=== PATIENT | female | born 1990 | race Caucasian/White ===

== ENCOUNTER 2020-05-30 02:26 | Emergency (ER) | payer BC, SELFPAY ==
[2020-05-30 02:30] VITALS: BP 117/82; PULSE 86; RESP 20; TEMP 36.7; O2SAT 100
--- NOTE | 2020-05-30 02:58 | ED.DENTAL ---
HPI - Dental/Oral General Chief complaint: Ear Stated complaint: Teeth and R ear pain Time Seen by Provider: 05/30/20 02:56 Source: patient Mode of arrival: ambulatory Limitations: no limitations History of Present Illness HPI Narrative: Patient is a 29-year-old female complaining of dental pain, right upper molar radiating to her right ear started yesterday. Patient states that she has bad teeth . Denies any facial, jaw, throat or neck swelling. Patient denies any dysphagia. Patient denies any fever chills. Patient denies any ear discharge. Related Data Allergies Allergy/AdvReac Type Severity Reaction Status Date / Time metoclopramide [From Reglan] AdvReac Itching Verified 05/30/20 02:48 ondansetron [From Zofran] AdvReac Itching Verified 05/30/20 02:48 promethazine [From Phenergan] AdvReac Itching Verified 05/30/20 02:48 Review of Systems Review of Systems: All systems reviewed & are unremarkable except as noted in HPI and below PMFSH Social History Social History Gender identity (if verbalized by the patient): Female Exam Const: General: no acute distress and alert Orientation/consciousness: patient oriented x3 HENMT: Mouth: Yes Normal oral and palatal mucosa present, Yes lip normal and Yes moist mucous membranes Teeth and gingiva: abnormal tooth and associated gingiva (Widespread dental caries and decay, no signs of abscess) Eyes: Conjunctivae: conjunctivae normal Neck: Neck: normal visual inspection Resp: Effort & Inspection: normal respiratory effort Extrem: General: normal to inspection Psych: Mental Status: mental status grossly normal Affect: normal affect Attitude: cooperative Course Vital Signs Vital signs: Vital Signs Temperature 36.7 C 05/30/20 02:30 Pulse Rate 86 05/30/20 02:30 Respiratory Rate 20 05/30/20 02:30 Blood Pressure 117/82 05/30/20 02:30 Pulse Oximetry 100 05/30/20 02:30 Temperature 36.7 C 05/30/20 02:30 Pulse Rate 86 05/30/20 02:30 Respiratory Rate 20 05/30/20 02:30 Blood Pressure 117/82 05/30/20 02:30 Pulse Oximetry 100 05/30/20 02:30 MDM - Dental/Oral Differential Diagnosis Differential diagnosis: Likely gingival abscess, dental caries, toothache and fracture of tooth Discharge Plan Discharge Clinical Impression: Pain due to dental caries, Dental decay Patient Disposition: Home, Self-Care Condition: Stable Instructions: Antibiotic Form Prescriptions: New amoxicillin-pot clavulanate [Augmentin] 500-125 mg tablet 1 tablet PO Q12H Qty: 14 RF: 0 Follow-up/Referrals: PHYSICIAN,STORE WAREHOUSE ASSOCIATE [Primary Care Provider] - Time of Disposition: 03:03
[2020-05-30] MEDS: KETOROLAC 30 MG/ML VIAL (*BKC) IM (03:09)
== END 2020-05-30 03:18 | disposition home or self-care (01) ==
PROVIDERS: Emergency Provider Emergency Medicine
DX: K02.9 Dental caries, unspecified (principal)
CPT/HCPCS: 96372; 99283; J1885

== ENCOUNTER 2020-06-10 00:38 | Emergency (ER) | payer BC, SELFPAY ==
--- NOTE | ~2020-06-10 | CT_ITS ---
EXAMINATION: CT abdomen pelvis w con INDICATION: Hematuria TECHNIQUE: Computed tomographic images of the abdomen and pelvis were obtained after the administrati on of 100 cc of Omnipaque 350 intravenous contrast. The dose-length product (DLP) was 270.09 mGy-cm. Automated exposure control and iterative reconstruction technique were employed. COMPARISON: None available FINDINGS: The lung bases are clear. The heart size is normal. The liver, spleen, pancreas, gallbladde r, and adrenal glands are normal. There is a 9 mm nonobstructing stone in the right kidney lower pole . The left kidney is unremarkable. There is mild urothelial enhancement of the right ureter in the ri ght renal pelvis. An IUD is present in expected position. No pathologically enlarged abdominal or pel jules lymph nodes are identified. There is no free intraperitoneal gas or evidence of bowel obstruction . There is a small fat-containing umbilical hernia. IMPRESSION: 1. Mild urothelial enhancement of the right ureter and right renal pelvis which may reflect urinary t ract infection. 2. Nonobstructing right nephrolithiasis. Reviewed, dictated and finalized at location A. RONMENTAL MANAGEMENT SPECIALIST IMPRESSION: 1. Mild urothelial enhancement of the right ureter and right renal pelvis which may reflect urinary tract infection. 2. Nonobstructing right nephrolithiasis.
[2020-06-10 00:44] VITALS: BP 126/93; PULSE 89; RESP 16; TEMP 36.3; O2SAT 99
[2020-06-10 01:11] LABS: Add Urine Microscopic? YES; Appearance Urine Cloudy (Clear); Bilirubin Urine Negative (Negative); Blood Urine 3+ (Negative); Glucose Urine UA Negative (Negative); Ketones Urine Negative (Negative); Leukocyte Esterase Ur Negative LEU/UL (Negative); Mucus Urine Few /lpf; Nitrate Urine Negative (Negative); Protein Urine 2+ mg/dL (Negative); RBC Urine >75 /hpf (0-2); Specific Grav Ur 1.028 (1.001-1.035); Urobilinogen Urine Negative mg/dL (<2.0)
[2020-06-10 01:20] LABS: Color Urine Brown (Yellow)
--- NOTE | 2020-06-10 02:00 | ED.FEMALEGU ---
HPI - Female Genitourinary General Chief complaint: Urogenital-Female Stated complaint: I'm peeing blood. it started tonight. Time Seen by Provider: 06/10/20 01:16 Source: patient Mode of arrival: ambulatory Limitations: no limitations History of Present Illness HPI Narrative: Patient is 29 years old white female presents with hematuria started 2-hour prior to arrival to the emergency room. Patient reports some discomfort in the suprapubic area recently. Also is telling me that she been having itching around the vagina since October 2019, unable to go to any doctor because of the COVID-19. Patient also telling me that her urethra hurt. Patient denies any fever, chills, nausea, vomiting. Patient drove herself to the emergency room. Related Data Allergies Allergy/AdvReac Type Severity Reaction Status Date / Time metoclopramide [From Reglan] AdvReac Itching Verified 05/30/20 02:48 ondansetron [From Zofran] AdvReac Itching Verified 05/30/20 02:48 promethazine [From Phenergan] AdvReac Itching Verified 05/30/20 02:48 Review of Systems Review of Systems: Narrative: CONSTITUTIONAL: Denies fever, chills, or sweats. EYES: Denies visual changes, redness, or discharge. ENT: Denies rhinorrhea, congestion, sore throat, or otalgia. CARDIOVASCULAR: Denies chest pain, palpitations, or edema. RESPIRATORY: Denies cough or dyspnea. GASTROINTESTINAL: Denies abdominal pain, nausea, vomiting, or diarrhea. GENITOURINARY: Denies dysuria or hematuria. SKIN: Denies rash or itching. MUSCULOSKELETAL: Denies back pain, joint pain, or myalgia. NEUROLOGIC: Denies headache, numbness, or weakness. PSYCHIATRIC: Denies anxiety or depression. PMFSH Social History Social History Gender identity (if verbalized by the patient): Female Exam Narrative: Exam Narrative: General appearance: Well-developed, well-nourished Skin: Normal color Chest and respiratory: Airway patent, no respiratory distress, no accessory muscle use Heart: Regular rate/rhythm Abdomen: Soft, mild tenderness suprapubic area , no organomegaly, quiet bowel sounds Vascular: Normal peripheral pulses, normal capillary refill. Musculoskeletal: Normal range of motion, nontender back Neurologic: Alert and oriented ?3, ELECTRONEURODIAGNOSTIC TECHNOLOGIST is normal as tested, no gross motor deficit Course Course Emergency Course: Stable Vital Signs Vital signs: Vital Signs Temperature 36.3 C L 06/10/20 00:44 Pulse Rate 89 06/10/20 00:44 Respiratory Rate 16 06/10/20 00:44 Blood Pressure 126/93 H 06/10/20 00:44 Pulse Oximetry 99 06/10/20 00:44 Temperature 36.3 C L 06/10/20 00:44 Pulse Rate 89 06/10/20 00:44 Respiratory Rate 16 06/10/20 00:44 Blood Pressure 126/93 H 06/10/20 00:44 Pulse Oximetry 99 06/10/20 00:44 MDM - Female Genitourinary MDM Narrative Medical decision making narrative: Patient presents with hematuria. Urinary tract infection is my concern. Differential Diagnosis Differential diagnosis: Likely urinary tract infection, vaginitis and other (Kidney stone, tumor) Lab Data Result diagrams: 06/10/20 01:59 06/10/20 02:08 Labs: Lab Results 06/10/20 06/10/20 06/10/20 Range/Units 00:54 01:59 01:59 WBC 11.3 H (4.5-10.0) K/mm3 RBC 3.88 L (4.2-5.4) M/mm3 Hgb 12.5 (12.0-15.0) g/dL Hct 37.4 (37.0-47.0) % MCV 96.4 (80-100) fl MCH 32.2 (26-34) pg MCHC 33.4 (32-36) g/dl RDW 13.6 (11.5-14.5) % Plt Count 343 (150-375) k/mm3 MPV 9.9 (7.4-10.4) fl Immature Gran % (Auto) 0.2 (0-0.5) % Neut % (Auto) 48.5 (45.5-73.1) % Lymph % (Auto) 39.7 (18.3-44.2) % [place] % (A
--- NOTE | 2020-06-10 02:02 | PC.NURSE ---
Patient being taken to CT.
[2020-06-10 02:07] LABS: Basophils Absolute Auto 0.1 K/mm3 (0.0-0.1); Basophils Percent Auto 0.4 % (0.2-1.2); Eosinophils Absolute Auto 0.2 K/mm3 (0-0.3); Eosinophils Percent Auto 1.7 % (0-4.4); Hematocrit 37.4 % (37.0-47.0); Hemoglobin 12.5 g/dL (12.0-15.0); Immature Granulocyte Absolute 0.02 K/mm3 (0.00-0.031); Immature Granulocyte Percent A 0.2 % (0-0.5); Lymphocytes Absolute Auto 4.48 K/mm3 (0.9-3.2); Lymphocytes Percent Auto 39.7 % (18.3-44.2); Mean Corpuscular HGB Conc 33.4 g/dl (32-36); Mean Corpuscular Hemoglobin 32.2 pg (26-34); Mean Corpuscular Volume 96.4 fl (80-100); Mean Platelet Volume 9.9 fl (7.4-10.4); Monocytes Absolute Auto 1.1 K/mm3 (0.1-0.6); Monocytes Percent Auto 9.5 % (2.6-8.5); Neutrophils Absolute Auto 5.5 K/mm3 (1.3-6.7); Neutrophils Percent Auto 48.5 % (45.5-73.1); Platelet Count Result 343 k/mm3 (150-375); Red Blood Count 3.88 M/mm3 (4.2-5.4); Red Cell Distribution Width 13.6 % (11.5-14.5); White Blood Count 11.3 K/mm3 (4.5-10.0)
[2020-06-10 02:11] LABS: Estimated CRCL calculation 87 ml/min; Estimated Glomerular Filt Rate > 60
[2020-06-10 02:25] LABS: Alanine Aminotransferase 17 U/L (4-35); Albumin Level 4.3 g/dL (3.5-5.1); Alkaline Phosphatase 82 U/L (38-126); Anion Gap 6 mmol/L (8-16); Aspartate Amino Transferase 23 U/L (14-36); Bilirubin,Total 0.4 mg/dL (0.2-1.3); Blood Urea Nitrogen 18 mg/dL (7-17); Calcium 9.5 mg/dL (8.4-10.2); Carbon Dioxide 24 mmol/L (22-30); Chloride 112 mmol/L (98-107); Estimated CRCL calculation 101 ml/min; Estimated Glomerular Filt Rate > 60; Glucose 102 mg/dL (65-105); Sodium 142 mmol/L (137-145)
[2020-06-10 02:30] LABS: Potassium 3.5 mmol/L (3.4-5.0)
[2020-06-10 04:00] VITALS: BP 117/74; PULSE 84; RESP 20; O2SAT 99
[2020-06-10] MEDS: AZITHROMYCIN 250 MG TABLET 1000 MG PO (04:13)
[2020-06-10] MEDS: cefTRIAXone 250 MG VIAL IM (04:13)
== END 2020-06-10 04:20 | disposition home or self-care (01) ==
PROVIDERS: Emergency Provider Emergency Medicine
DX: N34.2 Other urethritis (principal); R31.9 Hematuria, unspecified; N20.0 Calculus of kidney
CPT/HCPCS: 36415; 74177; 80053; 81001; 81025; 85025; 87086; 87088; 96372; 99284; A9270; J0696; Q9967

== ENCOUNTER 2020-07-15 05:34 | Emergency (ER) | payer BC, SELFPAY ==
[2020-07-15 05:38] VITALS: BP 109/82; PULSE 94; RESP 18; TEMP 36.1; O2SAT 100
--- NOTE | 2020-07-15 05:48 | ED.DENTAL ---
HPI - Dental/Oral General Chief complaint: Dental/Oral Stated complaint: dental pain Time Seen by Provider: 07/15/20 05:42 Source: RN notes reviewed History of Present Illness HPI Narrative: Patient presents to emergency room from home for dental pain. Patient states that she has multiple carious teeth and is scheduled to see a dentist in several weeks she states that for the past several days she has had increasing pain in the right upper and lower molars she denies any new trauma or injury she denies any fevers or chills sore throat or any other symptoms she states she last took Tylenol and ibuprofen both approximately 45 minutes prior to arrival for the pain patient states she did drive herself to the emergency department. Denies any chance of Related Data Allergies Allergy/AdvReac Type Severity Reaction Status Date / Time metoclopramide [From Reglan] AdvReac Itching Verified 07/15/20 05:51 ondansetron [From Zofran] AdvReac Itching Verified 07/15/20 05:51 promethazine [From Phenergan] AdvReac Itching Verified 07/15/20 05:51 Review of Systems Review of Systems: Narrative: Gen.: Denies fevers or chills HEENT: See HPI Neuro: Denies numbness, tingling, weakness Skin: Denies rash Endo: Denies DM PMFSH Past Medical History Medical History (Updated 07/15/20 @ 05:51 by Domingo Arteaga DO) Patient denies significant medical history Social History Social History (Updated 07/15/20 @ 05:49 by Domingo Arteaga DO) Smoking status: Never smoker Gender identity (if verbalized by the patient): Female Exam Narrative: Exam Narrative: APPEARANCE: No acute distress, nontoxic, resting in bed HEENT: Normocephalic, atraumatic, TMs clear bilaterally, nares patent, oral mucosa moist, airway patent, multiple carious teeth, tooth #1 and 2 are tender to palpation as well as tooth #31 and 32 there is no erythema the gum with no fluctuance no overlying swelling or erythema of the face Neck: Supple nontender RESPIRATORY: No respiratory distress MUSCULOSKELETAl: Moves all extremities. NEURO: Awake and alert. Following commands, speech normal, no focal deficits SKIN:: Warm, dry. Normal Color PSYCHIATRIC: Normal affect/mood Course Course Emergency Course: Discussed pain medication with the patient the patient drove herself to the emergency department just took Tylenol and ibuprofen free from his prior to arrival. Patient did ask if I would write her a narcotic pain medication at home and I discussed with her need for antibiotics and anti-inflammatories and for follow-up with dentist. Discussed with patient results of workup and diagnosis. Discussed need for follow-up with primary care, proper use of medication, and reasons to return to the emergency department. Patient understands and agrees to current treatment plan Vital Signs Vital signs: Vital Signs Temperature 97 F L 07/15/20 05:38 Pulse Rate 94 07/15/20 05:38 Respiratory Rate 18 07/15/20 05:38 Blood Pressure 109/82 07/15/20 05:38 Pulse Oximetry 100 07/15/20 05:38 Temperature 97 F L 07/15/20 05:38 Pulse Rate 94 07/15/20 05:38 Respiratory Rate 18 07/15/20 05:38 Blood Pressure 109/82 07/15/20 05:38 Pulse Oximetry 100 07/15/20 05:38 Discharge Plan Discharge Clinical Impression: Toothache, Dental abscess Patient Disposition: Home, Self-Care Condition: Stable Instructions: Antibiotic Form, Toothache (ED) Additional Instructions: Return for increasing pain fever or any other symptoms or concern Prescriptions: New penicillin V potassium 500 mg tablet 500 mg PO TID Qty: 30 RF: 0 ibuprofen [IBU] 600 mg tablet 600 mg PO Q6H PRN (Reason: pain) Qty: 20 RF: 0 No Action amoxicillin-pot clavulanate [Augmentin] 500-125 mg tablet 1 tablet PO Q12H Qty: 14 RF: 0 ciprofloxacin HCl [Cipro] 500 mg tablet 500 mg PO Q12H Qty: 14 RF: 0 phenazopyridine [Pyridium] 200 mg tablet 200 mg PO TID PRN (Reas
[2020-07-15] MEDS: PENICILLIN V POTASSIUM 250 MG TABLET 500 MG PO (05:52)
[2020-07-15] MEDS: traMADol HCL (*CRX) 50 MG TABLET PO (06:02)
== END 2020-07-15 06:41 | disposition home or self-care (01) ==
LOC: ANHED 06:01
PROVIDERS: Emergency Provider Emergency Medicine
DX: K04.7 Periapical abscess without sinus (principal)
CPT/HCPCS: 99283; A9270

== ENCOUNTER 2020-08-01 01:07 | Emergency (ER) | payer BC, SELFPAY ==
[2020-08-01 01:10] VITALS: BP 148/87; PULSE 85; RESP 16; TEMP 37.1; O2SAT 100
--- NOTE | 2020-08-01 01:40 | ED.DENTAL ---
HPI - Dental/Oral General Chief complaint: Dental/Oral Stated complaint: dental pain Time Seen by Provider: 08/01/20 01:12 History of Present Illness HPI Narrative: Patient is a 29-year-old female who presents ER with dental pain. Right-sided across the lower and upper jaw. Radiates towards her ear and under her eye. No fevers or chills or sweats. Has discomfort with swallowing but has no inability to swallow. No difficulty breathing. Reports she is currently taking penicillin for potential infection. Reports pain is not controlled and that is worsened by chest breathing. She has attempted to contact on-call dentist however to make an emergency appointment at the dental school he have to wake up at 8 AM and she does not wake up until 9:30 AM. She reports she wants slept through her alarm. Reports no swollen lymph node under the jaw on the right. Related Data Allergies Allergy/AdvReac Type Severity Reaction Status Date / Time metoclopramide [From Reglan] AdvReac Itching Verified 07/15/20 05:51 ondansetron [From Zofran] AdvReac Itching Verified 07/15/20 05:51 promethazine [From Phenergan] AdvReac Itching Verified 07/15/20 05:51 Review of Systems ENT: Denies dysphagia Comments: Dental pain radiating to ear. Respiratory: Respiratory: Denies dyspnea PMFSH Past Medical History Medical History (Updated 08/01/20 @ 02:06 by Kofi Farah MD) Patient denies significant medical history Social History Social History (Updated 07/15/20 @ 05:49 by Domingo Arteaga DO) Smoking status: Never smoker Gender identity (if verbalized by the patient): Female Exam Narrative: Exam Narrative: GENERAL: Well-appearing, well-nourished, and in no acute distress. HEAD: Normocephalic, atraumatic. ENT: Mucous membranes moist. Poor dentition. No discernible abscess to drain. No facial swelling. Partially erupted tooth #32. NECK: Supple. RESP: Nonlabored, no stridor, speaks in full sentences. PSYCH: Normal mood and affect. Course Course Emergency Course: [place] for pain here. Discussed patient needs to follow-up with the dentist for further treatment of her pain. Continue antibiotics. Vital Signs Vital signs: Vital Signs Temperature 98.7 F 08/01/20 01:10 Pulse Rate 85 08/01/20 01:10 Respiratory Rate 16 08/01/20 01:10 Blood Pressure 148/87 H 08/01/20 01:10 Pulse Oximetry 100 08/01/20 01:10 Temperature 98.7 F 08/01/20 01:10 Pulse Rate 85 08/01/20 01:10 Respiratory Rate 16 08/01/20 01:10 Blood Pressure 148/87 H 08/01/20 01:10 Pulse Oximetry 100 08/01/20 01:10 Discharge Plan Discharge Clinical Impression: Toothache Patient Disposition: Home, Self-Care Condition: Stable Instructions: Toothache (ED) Additional Instructions: Your dental pain is likely related to exposed nerve either from gum erosion or dental disease. You need to follow-up with a dentist for further treatment evaluation this. You may try dental wax to cover the most sensitive teeth. Continue your home antibiotic that you were previously prescribed. Return to the ER if you cannot breathe, you cannot swallow, or you have significant facial swelling. Prescriptions: New tramadol 50 mg tablet 50 mg PO Q6H PRN (Reason: pain) Qty: 14 RF: 0 No Action penicillin V potassium 500 mg tablet 500 mg PO TID Qty: 30 RF: 0 ibuprofen [IBU] 600 mg tablet 600 mg PO Q6H PRN (Reason: pain) Qty: 20 RF: 0 amoxicillin-pot clavulanate [Augmentin] 500-125 mg tablet 1 tablet PO Q12H Qty: 14 RF: 0 ciprofloxacin HCl [Cipro] 500 mg tablet 500 mg PO Q12H Qty: 14 RF: 0 phenazopyridine [Pyridium] 200 mg tablet 200 mg PO TID PRN (Reason: pain) Qty: 6 RF: 0 Follow-up/Referrals: Dental Referral Line [Outside] - 1 Day PHYSICIAN,CITY PLANNING AIDE [Primary Care Provider] - Stand Alone Forms: Work/School Release IP
[2020-08-01] MEDS: HYDROcodone/acetaminophen (*CRX) 5-325 MG TABLET 1 TAB PO (02:01)
== END 2020-08-01 02:20 | disposition home or self-care (01) ==
PROVIDERS: Emergency Provider Emergency Medicine
DX: K08.89 Other specified disorders of teeth and supporting structures (principal)
CPT/HCPCS: 99283; A9270

== ENCOUNTER 2021-06-09 03:10 | Observation (INO) | payer BC, SELFPAY ==
[2021-06-09] VITALS (10 sets, daily range): BP systolic 99–116; BP diastolic 51–88; PULSE 105–125; RESP 18–22; TEMP 36.1–37.5; O2SAT 97–99
--- NOTE | ~2021-06-09 | CT_ITS ---
EXAMINATION: CT abdomen pelvis w con DATE: 06/09/2021 05:02 INDICATION: Epigastric abdominal pain. TECHNIQUE: Computed tomography (CT) of the abdomen and pelvis was performed with 100 mL Omnipaque 350 intravenous contrast. Automated exposure control and iterative reconstruction technique were employe d. The dose-length product was 332.26 mGy-cm. COMPARISON: CT abdomen and pelvis 06/10/2020 FINDINGS: The visualized portions of the lung bases demonstrate mild atelectasis. No pleural effusion . The heart size is normal. No pericardial effusion. The liver, gallbladder, spleen, pancreas, adrena l glands, and left kidney are normal. There is an 11 mm stone in right kidney. There is mild wall thi ckening and enhancement of the right ureter and right renal pelvis, consistent with pyelitis. There i s an intrauterine device in expected position. There are no dilated loops of bowel. There is liquid s tool in the colon suggestive of diarrhea. The appendix is normal. There are no pathologically enlarge d lymph nodes. There is no free intraperitoneal fluid. There is mild lumbar spondylosis. IMPRESSION: 1. Right-sided pyelitis again seen. 2. 11 mm nonobstructing right kidney stone. 3. Liquid stool in the colon suggestive of diarrhea. Reviewed, dictated and finalized at location A. [employer] DENTAL ASSISTANT
--- NOTE | 2021-06-09 03:37 | ED.NAVMDI ---
HPI - Nausea/Vomiting/Diarrhea General Chief complaint: Nausea/Vomiting/Diarrhea Stated complaint: n/v/d Time Seen by Provider: 06/09/21 03:14 History of Present Illness HPI Narrative: Patient is a 30-year-old female who presents ER with nausea vomiting diarrhea. Symptoms began around 930 and have intensified throughout the night. Innumerable amounts of diarrhea as well as vomiting. Often occur at the same time. No known sick contacts. Patient had a burrito for dinner that was made with fresh ingredients. No blood in her stool. Patient reports only antiemetic she can take his Compazine. No alleviating factors up until now. Symptoms often are aggravated by moving around. Related Data Allergies Allergy/AdvReac Type Severity Reaction Status Date / Time metoclopramide [From Reglan] AdvReac Itching Verified 07/15/20 05:51 ondansetron [From Zofran] AdvReac Itching Verified 07/15/20 05:51 promethazine [From Phenergan] AdvReac Itching Verified 07/15/20 05:51 Review of Systems Review of Systems: All systems reviewed & are unremarkable except as noted in HPI and below Constitutional: Constitutional: Denies chills, Denies fever(s) and Reports weakness ENT: Denies nasal congestion and Denies sore throat Cardiovascular: Cardiovascular: Denies chest pain, Denies rapid heart rate and Denies radiating jaw, neck or arm pain Respiratory: Respiratory: Denies cough and Denies dyspnea Gastrointestinal: Gastrointestinal: Denies abdominal pain, Reports diarrhea, Reports nausea and Reports vomiting Genitourinary: Genitourinary: Denies nocturia, Denies dysuria and Denies flank pain PMFSH Past Medical History Medical History (Updated 06/09/21 @ 06:54 by Kofi Farah MD) Patient denies significant medical history Surgical History Surgical History (Updated 06/09/21 @ 03:37 by Kofi Farah MD) No pertinent past surgical history Social History Social History (Updated 07/15/20 @ 05:49 by Domingo Arteaga DO) Smoking status: Never smoker Gender identity (if verbalized by the patient): Female Exam Narrative: GENERAL: Uncomfortable-appearing, well-nourished, and in mild distress. HEAD: Normocephalic, atraumatic. ENT: Mucous membranes moist. NECK: Supple. CHEST: Clear to auscultation. No respiratory distress. HEART: Tachycardic and regular. Normal peripheral pulses. ABDOMEN: Soft, nontender, nondistended. EXTREMITIES: Normal range of motion. No edema. SKIN: Warm, dry, no rash. NEURO: Alert and oriented x3. Course Course Emergency Course: Patient informed of results. Recommend admission for observation given persistent tachycardia and vomiting despite antiemetics. Aggressively hydrating patient. Vital Signs Vital signs: Vital Signs Temperature 97.1 F L 06/09/21 03:33 Pulse Rate 125 H 06/09/21 03:33 Respiratory Rate 22 H 06/09/21 03:33 Blood Pressure 114/88 06/09/21 03:33 Pulse Oximetry 99 06/09/21 03:33 Temperature 97.0 F L 06/09/21 07:01 Pulse Rate 110 H 06/09/21 07:01 Respiratory Rate 20 06/09/21 07:01 Blood Pressure 111/72 06/09/21 06:45 Pulse Oximetry 99 06/09/21 07:01 MDM - Nausea/Vomiting/Diarrhea Lab Data Result diagrams: 06/09/21 03:38 06/09/21 03:38 Labs: Lab Results 06/09/21 06/09/21 06/09/21 Range/Units 03:37 03:38 03:38 WBC 26.0 H (4.5-10.0) K/mm3 RBC 4.85 (4.2-5.4) M/mm3 Hgb 15.7 H D (12.0-15.0) g/dL Hct 45.3 (37.0-47.0) % MCV 93.4 (80-100) fl MCH 32.4 (26-34) pg MCHC 34.7 (32-36) g/dl RDW 12.4 (11.5-14.5) % Plt Count 451 H (150-375) k/mm3 MPV 9.6 (7.4-10.4) fl Immature Gran % (Auto) 0.6 H (0-0.5) % Neut % (Auto) 86.9 H (45.5-73.1) % Lymph % (Auto) 6.2 L (18.3-44.2) % [place] % (Auto) 5.6 (2.6-8.5) % Eos % (Auto) 0.3 (0-4.4) % Baso % (Auto) 0.4 (0.2-1.2) % Lymph # (Auto) 1.62 (0.9-3.2) K/mm3 [place] # (Auto) 1.5 H (0.1-0.6) K/
[2021-06-09] MEDS: PROCHLORPERAZINE EDISYLATE 10 MG/2 ML VIAL IV PUSH (03:39)
[2021-06-09] MEDS: SODIUM CHLORIDE 0.9% IV 1,000 ML 999 ML IV CONT ×2 (03:39→06:50)
[2021-06-09 03:48] LABS: Basophils Absolute Auto 0.1 K/mm3 (0.0-0.1); Basophils Percent Auto 0.4 % (0.2-1.2); Eosinophils Absolute Auto 0.1 K/mm3 (0-0.3); Eosinophils Percent Auto 0.3 % (0-4.4); Hematocrit 45.3 % (37.0-47.0); Hemoglobin 15.7 g/dL (12.0-15.0); Immature Granulocyte Absolute 0.16 K/mm3 (0.00-0.031); Immature Granulocyte Percent A 0.6 % (0-0.5); Lymphocytes Absolute Auto 1.62 K/mm3 (0.9-3.2); Lymphocytes Percent Auto 6.2 % (18.3-44.2); Mean Corpuscular HGB Conc 34.7 g/dl (32-36); Mean Corpuscular Hemoglobin 32.4 pg (26-34); Mean Corpuscular Volume 93.4 fl (80-100); Mean Platelet Volume 9.6 fl (7.4-10.4); Monocytes Absolute Auto 1.5 K/mm3 (0.1-0.6); Monocytes Percent Auto 5.6 % (2.6-8.5); Neutrophils Absolute Auto 22.6 K/mm3 (1.3-6.7); Neutrophils Percent Auto 86.9 % (45.5-73.1); Platelet Count Result 451 k/mm3 (150-375); Red Blood Count 4.85 M/mm3 (4.2-5.4); Red Cell Distribution Width 12.4 % (11.5-14.5)
[2021-06-09 04:09] LABS: Pregnancy On Board Control Positive; Urine Pregnancy Test Negative
[2021-06-09 04:28] LABS: Alanine Aminotransferase 35 U/L (4-35); Albumin Level 5.4 g/dL (3.5-5.1); Alkaline Phosphatase 118 U/L (38-126); Anion Gap 20 mmol/L (8-16); Aspartate Amino Transferase 35 U/L (14-36); Blood Urea Nitrogen 15 mg/dL (7-17); Calcium 10.8 mg/dL (8.4-10.2); Carbon Dioxide 16 mmol/L (22-30); Chloride 105 mmol/L (98-107); Estimated Glomerular Filt Rate > 60; Glucose 170 mg/dL (65-110); Lipase 61 U/L (23-300); Potassium 3.9 mmol/L (3.4-5.0); Sodium 141 mmol/L (137-145)
[2021-06-09 06:03] LABS: SARS-CoV-2 RNA PCR Negative
[2021-06-09] MEDS: LACTATED RINGERS 1,000 ML 999 ML IV CONT (06:28)
--- NOTE | 2021-06-09 07:45 | ADMGEN ---
This patient, Phylicia Lewis, was admitted to Medical Room 248-. Patient/family oriented to hospital policies and general routines including ID bracelet, bed and alarms, visiting hours, pain management, procedures, bathroom and other care routines, personal items, smoking policy, room service/diet, and visiting hours. Information on how to activate the Rapid Response Team has been discussed. Patient/Family are encouraged to report perceived risks to care and to ask questions if they do not understand what they are told or what they should do.
[2021-06-09] MEDS: SODIUM CHLORIDE 0.9% IV 1,000 ML 125 ML IV CONT (08:49)
--- NOTE | 2021-06-09 12:30 | WPDGICN ---
Assessment and Plan Assessment and plan (1) Gastroenteritis: Code(s): K52.9 - Noninfective gastroenteritis and colitis, unspecified Status: Acute Assessment and Plan: she is doing much better right now, probably infectious etiology no more nausea and she is hoping to go home she can follow-up in office in 3-4 weeks (2) Intractable vomiting: Code(s): R11.10 - Vomiting, unspecified Status: Acute Assessment and Plan: resolved after medical treatment (3) Dehydration: Code(s): E86.0 - Dehydration Status: Acute Assessment and Plan: improved (4) Leukocytosis: Code(s): D72.829 - Elevated white blood cell count, unspecified Status: Acute GI Consult Note Consult date/time: 06/09/21 12:30 Reason for consult: enterocolitis, nausea and vomiting HPI: Phylicia Lewis is a 30 year old female with history of IBS at baseline will have 2-3 loose stools. She is quite healthy other than smoker and yesterday with new onset of diarrhea several times with intractable nausea and vomiting, mild abdominal pain, denies sick contacts or similar problem, she was thirsty. She was admitted here with diagnosed if dehydration (she was hemoconcentrated) and CT scan a/p reviewed, c/w diarrhea, wbc 26k, started on antibiotics. She was admitted, hydrated and today feeling much better, tolerated liquid diet, no more nausea and wish to go home soon. Review of Systems Constitutional: Constitutional: Denies chills Eyes: Eyes: Denies blurry vision ENT: Reports Normal hearing present Cardiovascular: Cardiovascular: Denies chest pain Respiratory: Respiratory: Denies dyspnea Gastrointestinal: Gastrointestinal: Reports diarrhea, Reports nausea and Reports vomiting Genitourinary: Genitourinary: Denies hematuria Musculoskeletal: Musculoskeletal: Denies neck pain Integumentary/Breasts: Skin/Breast: Denies dry skin Neurologic: Denies headache(s) Psychiatric: Psychiatric: Denies behavioral changes PMFSH Past Medical History Medical History (Updated 06/09/21 @ 16:29 by Sean Menchaca MD) Leukocytosis Patient denies significant medical history Surgical History Surgical History (Updated 06/09/21 @ 03:37 by Kofi Farah MD) No pertinent past surgical history Social History Social History (Updated 07/15/20 @ 05:49 by Domingo Arteaga DO) Smoking packs per day: 0.5 Smoking cigarettes per day: 10.0 Smoking status: Current every day smoker Tobacco type: cigarettes Gender identity (if verbalized by the patient): Female Meds Home Medications and Allergies Home Medications Medication Instructions Recorded Confirmed Type cetirizine [Zyrtec] 10 mg PO DAILY PRN 06/09/21 06/09/21 History ciprofloxacin HCl 500 mg PO Q12H #14 tablet 06/09/21 Rx metronidazole [Flagyl] 375 mg PO TID #21 cap 06/09/21 Rx prochlorperazine maleate 10 mg PO Q8H PRN #10 tablet 06/09/21 Rx [Compazine] Allergies Allergy/AdvReac Type Severity Reaction Status Date / Time metoclopramide [From Reglan] AdvReac Itching Verified 06/09/21 09:07 ondansetron [From Zofran] AdvReac Itching Verified 06/09/21 09:07 promethazine [From Phenergan] AdvReac Itching Verified 06/09/21 09:07 Vital Signs Vital Signs - 24 hr 06/09/21 03:33 06/09/21 05:59 06/09/21 06:01 Temperature 97.1 F L Pulse Rate 125 H Respiratory Rate 22 H Blood Pressure 114/88 116/83 114/81 Pulse Oximetry 99 06/09/21 06:15 06/09/21 06:30 06/09/21 06:45 Temperature Pulse Rate Respiratory Rate Blood Pressure 110/76 108/79 111/72 Pulse Oximetry 06/09/21 07:01 06/09/21 08:30 06/09/21 12:04 Temperature 97.0 F L 98.2 F Pulse Rate 110 H 113 H Respiratory Rate 20 18 Blood Pressure 109/68 Pulse Oximetry 99 98 97 06/09/21 13:41 Temperature 99.5 F Pulse Rate 105 H Respiratory Rate 18 Blood Pressure 99/51 L Pulse Oximetry 98 Exam Const: General: c
--- NOTE | 2021-06-09 15:17 | PM.DS ---
DS: Admitting Diagnosis Discharge Date 06/09/2021 Admitting Diagnosis nausea, vomiting and diarrhea DS: Discharge Diagnosis Discharge Diagnosis (1) Gastroenteritis: Code(s): K52.9 - Noninfective gastroenteritis and colitis, unspecified Status: Acute Assessment and Plan: ED-HPI Narrative: Patient is a 30-year-old female who presents ER with nausea vomiting diarrhea. Symptoms began around 930 and have intensified throughout the night. Innumerable amounts of diarrhea as well as vomiting. Often occur at the same time. No known sick contacts. Patient had a burrito for dinner that was made with fresh ingredients. No blood in her stool. Patient reports only antiemetic she can take his Compazine. No alleviating factors up until now. Symptoms often are aggravated by moving around. patient had developed intractable nausea or vomiting and diarrhea presented emergency depart was found to have dehydration and elevated white counts, CT scan abdomen showed 1. Right-sided pyelitis again seen. 2. 11 mm nonobstructing right kidney stone. 3. Liquid stool in the colon suggestive of diarrhea. patient was admitted with dehydration and elevated white count with enteritis patient was started on IV antibiotics and IV fluid plan is to continue to monitor patient and further recommendation to follow. (2) Dehydration: Code(s): E86.0 - Dehydration Status: Acute Assessment and Plan: will hydrate the patient and monitor. DS: Summary Hospital Course Reason for hospitalization: ED-HPI Narrative: Patient is a 30-year-old female who presents ER with nausea vomiting diarrhea. Symptoms began around 930 and have intensified throughout the night. Innumerable amounts of diarrhea as well as vomiting. Often occur at the same time. No known sick contacts. Patient had a burrito for dinner that was made with fresh ingredients. No blood in her stool. Patient reports only antiemetic she can take his Compazine. No alleviating factors up until now. Symptoms often are aggravated by moving around. patient had developed intractable nausea or vomiting and diarrhea presented emergency depart was found to have dehydration and elevated white counts, CT scan abdomen showed 1. Right-sided pyelitis again seen. 2. 11 mm nonobstructing right kidney stone. 3. Liquid stool in the colon suggestive of diarrhea. patient was admitted with dehydration and elevated white count with enteritis patient was started on IV antibiotics and IV fluid plan is to continue to monitor patient and further recommendation to follow. Hospital Course: patient is insisting to be discharged or she will leave AMA as her children are unattended and she wish to return home as soon as possible, will discharge the patient to follow-up with her primary care as soon as possible, again patient instructed if any symptoms redeveloped or worsen to go to nearest emergency department. Status at Discharge Functional status at discharge: independent ambulation Overall status at discharge: patient is back to baseline Time Spent with Patient Time attestation: Total time spent providing and/or coordinating discharge services: Time spent: Less than 30 minutes Exam Narrative: patient appears chronically ill older than her age Patient is comfortable, NAD HEENT: eyes are clear and none icteric LUNGS: normal respiratory effort ABD: not distended Lower extremities: no edema SKIN: nonjaundiced Neuro: grossly intact. DS: Data Data Completed and Pending Labs on day of discharge: Labs from last 24 hours 06/09/21 06/09/21 06/09/21 05:22 03:38 03:38 WBC 26.0 H RBC 4.85 Hgb 15.7 H D Hct 45.3 MCV 93.4 MCH 32.4 MCHC 34.7 RDW 12.4 Plt Count 451 H MPV 9.6 Immature Gran % (Auto) 0.6 H Neut % (Auto) 86.9 H Lymph % (Auto) 6.2 L [place] % (Auto) 5.6 Eos % (Auto) 0.3 Baso % (Auto) 0.4 Lymph # (Auto) 1.62 [place] # (Auto) 1.
--- NOTE | 2021-06-15 16:18 | PM.IMHP ---
H&P: HPI History of Present Illness Date/Time: 06/09/21 ED-HPI Narrative: Patient is a 30-year-old female who presents ER with nausea vomiting diarrhea. Symptoms began around 930 and have intensified throughout the night. Innumerable amounts of diarrhea as well as vomiting. Often occur at the same time. No known sick contacts. Patient had a burrito for dinner that was made with fresh ingredients. No blood in her stool. Patient reports only antiemetic she can take his Compazine. No alleviating factors up until now. Symptoms often are aggravated by moving around. patient had developed intractable nausea or vomiting and diarrhea presented emergency depart was found to have dehydration and elevated white counts, CT scan abdomen showed 1. Right-sided pyelitis again seen. 2. 11 mm nonobstructing right kidney stone. 3. Liquid stool in the colon suggestive of diarrhea. patient was admitted with dehydration and elevated white count with enteritis patient was started on IV antibiotics and IV fluid plan is to continue to monitor patient and further recommendation to follow. Chief Complaint: nausea, vomiting diarrhea Review of Systems Review of Systems: All systems reviewed & are unremarkable except as noted in HPI and below PMFSH Past Medical History Medical History (Updated 06/09/21 @ 16:29 by Sean Menchaca MD) Leukocytosis Patient denies significant medical history Surgical History Surgical History (Updated 06/09/21 @ 03:37 by Kofi Farah MD) No pertinent past surgical history Social History Social History (Updated 07/15/20 @ 05:49 by Domingo Arteaga DO) Smoking packs per day: 0.5 Smoking cigarettes per day: 10.0 Smoking status: Current every day smoker Tobacco type: cigarettes Gender identity (if verbalized by the patient): Female Meds Home Medications and Allergies Home Medications Medication Instructions Recorded Confirmed Type cetirizine [Zyrtec] 10 mg PO DAILY PRN 06/09/21 06/09/21 History ciprofloxacin HCl 500 mg PO Q12H #14 tablet 06/09/21 Rx metronidazole [Flagyl] 375 mg PO TID #21 cap 06/09/21 Rx prochlorperazine maleate 10 mg PO Q8H PRN #10 tablet 06/09/21 Rx [Compazine] Allergies Allergy/AdvReac Type Severity Reaction Status Date / Time metoclopramide [From Reglan] AdvReac Itching Verified 06/09/21 09:07 ondansetron [From Zofran] AdvReac Itching Verified 06/09/21 09:07 promethazine [From Phenergan] AdvReac Itching Verified 06/09/21 09:07 Exam Narrative: patient appears chronically ill older than her age Patient is comfortable, NAD HEENT: eyes are clear and none icteric LUNGS: normal respiratory effort ABD: not distended Lower extremities: no edema SKIN: nonjaundiced Neuro: grossly intact. Assessment and Plan Assessment and plan (1) Gastroenteritis: Code(s): K52.9 - Noninfective gastroenteritis and colitis, unspecified Status: Acute Assessment and Plan: ED-HPI Narrative: Patient is a 30-year-old female who presents ER with nausea vomiting diarrhea. Symptoms began around 930 and have intensified throughout the night. Innumerable amounts of diarrhea as well as vomiting. Often occur at the same time. No known sick contacts. Patient had a burrito for dinner that was made with fresh ingredients. No blood in her stool. Patient reports only antiemetic she can take his Compazine. No alleviating factors up until now. Symptoms often are aggravated by moving around. patient had developed intractable nausea or vomiting and diarrhea presented emergency depart was found to have dehydration and elevated white counts, CT scan abdomen showed 1. Right-sided pyelitis again seen. 2. 11 mm nonobstructing right kidney stone. 3. Liquid stool in the colon suggestive of diarrhea. patient was admitted with dehydration and elevated white count with enteritis patient was started on IV antibiotics and IV fluid plan is to continue
== END 2021-06-09 15:51 | disposition home or self-care (01) ==
LOC: ANHED 06:54 → ANH2MED 11:24
PROVIDERS: Admitting Provider Internal Medicine; Emergency Provider Emergency Medicine; PCP Family Medicine; Visit Provider Family Medicine
DX: K52.9 Noninfective gastroenteritis and colitis, unspecified (principal); E86.0 Dehydration; R11.2 Nausea with vomiting, unspecified; D72.829 Elevated white blood cell count, unspecified; Z20.822 Contact with and (suspected) exposure to COVID-19; Z53.29 Procedure and treatment not carried out because of patient's decision for other reasons
CPT/HCPCS: 36415; 74177; 80053; 81025; 83690; 85025; 87040; 96374; 96375; 99285; C9803; G0378; J0780; J2543; J7030; J7120; Q9967; U0003; U0005

== ENCOUNTER 2021-10-16 14:09 | Observation (INO) | payer BC, SELFPAY ==
[2021-10-16] VITALS (13 sets, daily range): BP systolic 108–127; BP diastolic 53–78; PULSE 73–98; RESP 12–20; TEMP 36.7–36.8; O2SAT 94–100; BMI 24.4
--- NOTE | ~2021-10-16 | CT_ITS ---
EXAMINATION: CT abdomen pelvis wo con DATE: 10/16/2021 16:33 INDICATION: Right lower quadrant pain TECHNIQUE: Computed tomography (CT) of the abdomen and pelvis was performed without intravenous contr ast. The dose-length product (DLP) was 264.30 mGy-cm. Automated exposure control and iterative recons truction technique were employed. COMPARISON: 06/09/2021 FINDINGS: The lung bases are clear. The heart size is normal. The liver, spleen, pancreas, gallbladde r, and adrenal glands are normal. The left kidney is unremarkable. There is an 11 mm stone at the rig ht ureteropelvic junction causing moderate to severe hydronephrosis. There is a 3 mm nonobstructing s tone of the right kidney lower pole. No pathologically enlarged abdominal or pelvic lymph nodes are i dentified. An IUD is present in the uterus in expected position. There is an umbilical hernia contain ing fat. There is no free intraperitoneal gas or evidence of bowel obstruction. IMPRESSION: 1. 11 mm stone at the right ureteropelvic junction causing moderate to severe hydronephrosis. 2. Nonobstructing right nephrolithiasis. Reviewed, dictated and finalized at location F. IMPRESSION: 1. 11 mm stone at the right ureteropelvic junction causing moderate to severe h ydronephrosis. 2. Nonobstructing right nephrolithiasis.
--- NOTE | ~2021-10-16 | XR_ITS ---
EXAMINATION: XR retrograde pyelo w/stent RT DATE: 10/17/2021 07:54 INDICATION: Cystoscopy and right ureteral stent placement TECHNIQUE: 4 fluoroscopic images of the abdomen and pelvis were obtained during procedure performed mary ann Ayon. Radiologist was not present for the imaging or procedure. The amount of fluoroscopy time used during this procedure was 0.5 minutes. COMPARISON: None. FINDINGS: On the media arts professor image there is an 11 mm stone in the region of the right ureteropelvic junction projecti ng over the right transverse process of L1. IUD in expected position in the central pelvis. Subsequen t images demonstrate placement of a right internal ureteral stent which extends across the unchanged stone at the ureteropelvic junction with loops formed in upper pole infundibulum of the right kidney and in the bladder. There is hydronephrosis with contrast seen within the moderately dilated calyces of the right kidney. IMPRESSION: 1. Right internal ureteral stent placement in expected position spanning a likely obstructing 11 mm s tone at the ureteropelvic junction. See procedure note for further detail. Reviewed, dictated and finalized at location D. IMPRESSION: 1. Right internal ureteral stent placement in expected position spanning a like ly obstructing 11 mm stone at the ureteropelvic junction. See procedure note fo r further detail.
[2021-10-16 14:31] LABS: Basophils Absolute Auto 0.1 K/mm3 (0.0-0.1); Basophils Percent Auto 0.3 % (0.2-1.2); Eosinophils Absolute Auto 0.1 K/mm3 (0-0.3); Eosinophils Percent Auto 0.3 % (0-4.4); Hematocrit 42.7 % (37.0-47.0); Hemoglobin 14.5 g/dL (12.0-15.0); Immature Granulocyte Percent A 0.5 % (0-0.5); Lymphocytes Absolute Auto 3.35 K/mm3 (0.9-3.2); Lymphocytes Percent Auto 16.8 % (18.3-44.2); Mean Corpuscular Hemoglobin 31.7 pg (26-34); Mean Corpuscular Volume 93.2 fl (80-100); Mean Platelet Volume 9.5 fl (7.4-10.4); Monocytes Absolute Auto 1.7 K/mm3 (0.1-0.6); Monocytes Percent Auto 8.4 % (2.6-8.5); Neutrophils Absolute Auto 14.7 K/mm3 (1.3-6.7); Neutrophils Percent Auto 73.7 % (45.5-73.1); Platelet Count Result 372 k/mm3 (150-375); Red Blood Count 4.58 M/mm3 (4.2-5.4); Red Cell Distribution Width 12.9 % (11.5-14.5)
[2021-10-16 14:43] LABS: Alanine Aminotransferase 23 U/L (6-35); Albumin Level 5.2 g/dL (3.5-5.1); Alkaline Phosphatase 87 U/L (38-126); Anion Gap 10 mmol/L (8-16); Aspartate Amino Transferase 27 U/L (14-36); Blood Urea Nitrogen 11 mg/dL (7-17); Calcium 9.8 mg/dL (8.4-10.2); Carbon Dioxide 19 mmol/L (22-30); Chloride 110 mmol/L (98-107); Estimated CRCL calculation 60 ml/min; Estimated Glomerular Filt Rate > 60; Glucose 102 mg/dL (65-110); Lipase 52 U/L (23-300); Potassium 4.3 mmol/L (3.4-5.0); Sodium 139 mmol/L (137-145)
--- NOTE | 2021-10-16 14:51 | ED.BACK ---
HPI - Back Pain/Injury General Chief Complaint: Back Pain/Injury Stated Complaint: back pain Time Seen by Provider: 10/16/21 14:50 History of Present Illness HPI Narrative: The patient is a 30-year-old female with a history of kidney stones presenting to the emergency department for evaluation of right flank pain flank pain with radiation to the right lower quadrant. Patient denies associated dysuria or hematuria. She reports onset of pain this morning and it became very acute and severe. Patient denies any upper abdominal pain. She reports nausea and vomiting. She denies fever, chills, chest pain, cough or shortness of patient denies any abdominal distention, diarrhea or constipation. She denies leg swelling or calf pain. She denies recent sick contacts. Patient denies any vaginal bleeding or vaginal discharge. Related Data Home Medications Medication Instructions Recorded Confirmed cetirizine 10 mg tablet (Zyrtec) 10 mg PO DAILY PRN Allergy Symptoms 06/09/21 06/09/21 Allergies Allergy/AdvReac Type Severity Reaction Status Date / Time metoclopramide [From Reglan] AdvReac Itching Verified 06/09/21 09:07 ondansetron [From Zofran] AdvReac Itching Verified 06/09/21 09:07 promethazine [From Phenergan] AdvReac Itching Verified 06/09/21 09:07 Review of Systems Review of Systems: CONSTITUTIONAL: Denies fever, chills, or sweats. ENT: Denies rhinorrhea, congestion, sore throat, or otalgia. CARDIOVASCULAR: Denies chest pain, palpitations, or edema. RESPIRATORY: Denies cough or dyspnea. GASTROINTESTINAL: Reports right lower quadrant abdominal pain, nausea, vomiting GENITOURINARY: Denies dysuria or hematuria. Reports right flank pain. SKIN: Denies rash or itching. MUSCULOSKELETAL: Denies back pain, joint pain, or myalgia. NEUROLOGIC: Denies headache, numbness, or weakness. [facility] Past Medical History Medical History Dehydration Gastroenteritis Intractable vomiting Leukocytosis Patient denies significant medical history Surgical History Surgical History No pertinent past surgical history Social History Social History Smoking packs per day: 0.5 Smoking cigarettes per day: 10.0 Smoking status: Current every day smoker Tobacco type: cigarettes Gender identity (if verbalized by the patient): Female Exam Narrative: GENERAL: Awake, alert, conversant, uncomfortable appearing HEAD: Normocephalic, atraumatic. EYES: 2+ PERRLA and EOMI. ENT: Nares clear, no rhinorrhea or epistaxis. Mucous membranes moist. NECK: Supple. CHEST: No respiratory distress, breathing even and non labored HEART: Regular rate, sinus rhythm ABDOMEN:Non distended, right lower quadrant tenderness without guarding, rebound, rigidity, + right flank tenderness EXTREMITIES: Normal range of motion. No edema. SKIN: Warm, dry, no rash. NEURO:No focal deficits. Alert and oriented x3 Course Vital Signs Vital signs: Vital Signs Temperature 36.7 C 10/16/21 14:11 Pulse Rate 86 10/16/21 14:11 Respiratory Rate 18 10/16/21 14:11 Blood Pressure 120/63 10/16/21 14:11 Pulse Oximetry 100 10/16/21 14:11 Oxygen Delivery Room Air 10/16/21 14:11 Temperature 36.7 C 10/16/21 14:11 Pulse Rate 86 10/16/21 14:11 Respiratory Rate 18 10/16/21 14:11 Blood Pressure 120/63 10/16/21 14:11 Pulse Oximetry 100 10/16/21 14:11 Oxygen Delivery Room Air 10/16/21 14:11 MDM - Back Pain/Injury MDM Narrative Medical decision making narrative: Patient presented for evaluation of right flank pain that radiated to the right lower abdomen and is quite uncomfortable. At the time of assessment. Reproducible pain with palpation of the right flank and right lower abdomen. Patient was given IV Compazine as that is what typically works well for her nausea, also given IV minh
[2021-10-16] MEDS: PROCHLORPERAZINE EDISYLATE 10 MG/2 ML VIAL IV PUSH (15:49)
[2021-10-16] MEDS: SODIUM CHLORIDE 0.9% IV 1,000 ML 999 ML IV CONT (15:49)
[2021-10-16] MEDS: MORPHINE SULFATE (*CRX) 4 MG/ML INJ IV PUSH (15:50)
[2021-10-16 16:48] LABS: Add Urine Microscopic? YES; Appearance Urine Clear (Clear); Bilirubin Urine Negative (Negative); Blood Urine 1+ (Negative); Color Urine Yellow (Yellow); Glucose Urine UA Negative (Negative); Ketones Urine Negative (Negative); Leukocyte Esterase Ur Trace LEU/UL (Negative); Nitrate Urine Negative (Negative); Protein Urine Trace mg/dL (Negative); Urobilinogen Urine 0.2 mg/dL (<2.0)
[2021-10-16 17:00] LABS: Mucus Urine Rare /lpf; Squamous Epithelial Cell Urine Few /hpf (Few)
[2021-10-16] MEDS: HYDROmorphone HCL INJ (*CRX) 1 MG/ML SYR 0.5 MG IV PUSH (18:04)
[2021-10-16] MEDS: KETOROLAC 30 MG/ML VIAL (*BKC) IV PUSH (18:54)
--- NOTE | 2021-10-16 19:47 | PM.IMHP ---
H&P: HPI History of Present Illness Date/Time: 10/16/21 19:47 Chief Complaint: right renal colic Narrative: 30F in for right flank pain and nausea. CT: 12 mm right UPJ stone with moderate hydro; no other significant stones; clearly visible on manager management film; 843 HU Labs: WBC 20, creat 0.9, UA with small amt RBCs and WBCs, not infected--- her WBC during a recent visit was 26 and appears to be generally elevated Vitals normal Review of Systems Review of Systems: ROS negative save for flank pain and nausea PMFSH Past Medical History Medical History Dehydration Gastroenteritis Intractable vomiting Leukocytosis Patient denies significant medical history Surgical History Surgical History No pertinent past surgical history Social History Social History Smoking packs per day: 0.5 Smoking cigarettes per day: 10.0 Smoking status: Current every day smoker Tobacco type: cigarettes Gender identity (if verbalized by the patient): Female Meds Home Medications and Allergies Allergies Allergy/AdvReac Type Severity Reaction Status Date / Time metoclopramide [From Reglan] AdvReac Itching Verified 10/16/21 19:07 ondansetron [From Zofran] AdvReac Itching Verified 10/16/21 19:07 promethazine [From Phenergan] AdvReac Itching Verified 10/16/21 19:07 Vital Signs Vital Signs - 24 hr 10/16/21 14:11 10/16/21 18:07 10/16/21 18:15 Temperature 36.7 C Pulse Rate 86 98 96 Respiratory Rate 18 20 19 Blood Pressure 120/63 Pulse Oximetry 100 95 94 Oxygen Delivery Room Air 10/16/21 18:16 10/16/21 18:36 10/16/21 18:45 Temperature Pulse Rate 96 81 81 Respiratory Rate 14 14 17 Blood Pressure 117/78 Pulse Oximetry 96 95 96 Oxygen Delivery 10/16/21 18:46 10/16/21 19:00 10/16/21 19:01 Temperature Pulse Rate 83 79 73 Respiratory Rate 15 17 15 Blood Pressure 113/76 108/76 Pulse Oximetry 96 94 94 Oxygen Delivery 06/23/22 19:02 10/16/21 19:15 10/16/21 19:36 Temperature Pulse Rate 81 83 82 Respiratory Rate 15 14 12 Blood Pressure 111/71 Pulse Oximetry 94 95 96 Oxygen Delivery Exam Narrative: Vitals reviewed H&P: Results Labs Labs: Short CBC 10/16/21 Range/Units 14:18 WBC 20.0 H (4.5-10.0) K/mm3 Hgb 14.5 (12.0-15.0) g/dL Hct 42.7 (37.0-47.0) % Plt Count 372 (150-375) k/mm3 BMP 10/16/21 14:18 Sodium 139 Potassium 4.3 Chloride 110 H Carbon Dioxide 19 L BUN 11 Creatinine 0.90 Glucose 102 Calcium 9.8 Liver Function 10/16/21 Range/Units 14:18 Total Bilirubin 1.0 (0.2-1.3) mg/dL AST 27 (14-36) U/L ALT 23 (6-35) U/L Alkaline Phosphatase 87 (38-126) U/L Albumin 5.2 H (3.5-5.1) g/dL Urine 10/16/21 Range/Units 16:16 Urine Color Yellow (Yellow) Urine Appearance Clear (Clear) Urine pH 7.0 (5.0-9.0) Ur Specific [place] 1.020 (1.001-1.035) Urine Protein Trace (Negative) mg/dL Urine Glucose (UA) Negative (Negative) mg/dL Assessment and Plan Assessment and plan (1) Obstruction of right ureteropelvic junction due to stone: Code(s): N20.1 - Calculus of ureter Status: Acute Plan 30F with 12mm right UPJ stone with unrelenting flank pain - admit to urology service - she has received ceftriaxone - toradol, prn morphine, IVF, NPO c mn - OR has been contacted regarding right ureteral stent placement tomorrow with Dr Gabo Saldana MD [facility]
--- NOTE | 2021-10-16 20:13 | ADMGEN ---
This patient, Phylicia Lewis, was admitted to 3 [facility] Surg Room 312-01 @ 2000. Patient/family oriented to hospital policies and general routines including ID bracelet, bed and alarms, visiting hours, pain management, procedures, bathroom and other care routines, personal items, smoking policy, room service/diet, and visiting hours. Information on how to activate the Rapid Response Team has been discussed. Patient/Family are encouraged to report perceived risks to care and to ask questions if they do not understand what they are told or what they should do.
[2021-10-16] MEDS: LACTATED RINGERS 1,000 ML 125 ML IV CONT (20:32)
[2021-10-17] VITALS (7 sets, daily range): BP systolic 92–119; BP diastolic 30–83; PULSE 70–103; RESP 12–17; TEMP 36.1–37.2; O2SAT 97–100
[2021-10-17 06:09] LABS: Basophils Percent Auto 0.2 % (0.2-1.2); Eosinophils Absolute Auto 0.1 K/mm3 (0-0.3); Eosinophils Percent Auto 0.9 % (0-4.4); Hematocrit 37.4 % (37.0-47.0); Hemoglobin 12.5 g/dL (12.0-15.0); Immature Granulocyte Absolute 0.06 K/mm3 (0.00-0.031); Immature Granulocyte Percent A 0.4 % (0-0.5); Lymphocytes Percent Auto 25.2 % (18.3-44.2); Mean Corpuscular HGB Conc 33.4 g/dl (32-36); Mean Corpuscular Hemoglobin 31.6 pg (26-34); Mean Corpuscular Volume 94.7 fl (80-100); Mean Platelet Volume 9.6 fl (7.4-10.4); Monocytes Absolute Auto 1.8 K/mm3 (0.1-0.6); Monocytes Percent Auto 11.3 % (2.6-8.5); Neutrophils Absolute Auto 10.1 K/mm3 (1.3-6.7); Platelet Count Result 318 k/mm3 (150-375); Red Blood Count 3.95 M/mm3 (4.2-5.4); Red Cell Distribution Width 12.9 % (11.5-14.5); White Blood Count 16.2 K/mm3 (4.5-10.0)
[2021-10-17 06:28] LABS: Anion Gap 5 mmol/L (8-16); Blood Urea Nitrogen 12 mg/dL (7-17); Calcium 8.7 mg/dL (8.4-10.2); Carbon Dioxide 24 mmol/L (22-30); Chloride 108 mmol/L (98-107); Estimated CRCL calculation 54 ml/min; Estimated Glomerular Filt Rate > 60; Glucose 99 mg/dL (65-110); Potassium 3.7 mmol/L (3.4-5.0); Sodium 137 mmol/L (137-145)
--- NOTE | 2021-10-17 07:04 | PC.NURSE ---
Surgery here to transport to cystoscopy via wheelchair.
[2021-10-17] MEDS: LACTATED RINGERS 1,000 ML 30 ML IV CONT (07:15)
--- NOTE | 2021-10-17 07:16 | WPDANESEPPF ---
Anes - Initial Pre Proc Eval Procedure: Operation Date: 10/17/21 07:30 Proposed Procedures p Cystoscopy,Right Stent Placement - Arash Ayon MD Date/Time: 10/17/21 07:16 Surgeon: Nathanael Saldana MD Pre Op Diagnosis: Renal colic Patient Data Age: 30 Gender: F Height: 1.55 m Weight: 58.6 kg Last Vital Signs Temp 36.3 C L 10/17/21 06:00 Pulse 83 10/17/21 06:00 Resp 16 10/17/21 06:00 BP 92/55 L 10/17/21 06:00 Pulse Ox 98 10/17/21 06:00 O2 Del Method Room Air 10/16/21 14:11 Allergies Allergy/AdvReac Type Severity Reaction Status Date / Time metoclopramide [From Reglan] AdvReac Itching Verified 10/16/21 19:07 ondansetron [From Zofran] AdvReac Itching Verified 10/16/21 19:07 promethazine [From Phenergan] AdvReac Itching Verified 10/16/21 19:07 Home Medications Medication Instructions Recorded Confirmed Type No Home Medications 10/16/21 10/16/21 History Laboratory Tests 10/16/21 10/16/21 10/16/21 14:18 14:18 16:16 WBC 20.0 K/mm3 H K/mm3 (4.5-10.0) RBC 4.58 M/mm3 M/mm3 (4.2-5.4) Hgb 14.5 g/dL g/dL (12.0-15.0) Hct 42.7 % % (37.0-47.0) MCV 93.2 fl fl (80-100) MCH 31.7 pg pg (26-34) MCHC 34.0 g/dl g/dl (32-36) RDW 12.9 % % (11.5-14.5) Plt Count 372 k/mm3 k/mm3 (150-375) MPV 9.5 fl fl (7.4-10.4) Immature Gran % (Auto) 0.5 % % (0-0.5) Neut % (Auto) 73.7 % H % (45.5-73.1) Lymph % (Auto) 16.8 % L % (18.3-44.2) Bremer % (Auto) 8.4 % % (2.6-8.5) Eos % (Auto) 0.3 % % (0-4.4) Baso % (Auto) 0.3 % % (0.2-1.2) Lymph # (Auto) 3.35 K/mm3 H K/mm3 (0.9-3.2) Bremer # (Auto) 1.7 K/mm3 H K/mm3 (0.1-0.6) Eos # (Auto) 0.1 K/mm3 K/mm3 (0-0.3) Baso # (Auto) 0.1 K/mm3 K/mm3 (0.0-0.1) Abs Immat Gran (auto) 0.10 K/mm3 H K/mm3 (0.00-0.031) Absolute Neuts (auto) 14.7 K/mm3 H K/mm3 (1.3-6.7) Absolute Nucleated RBC 0.0 K/mm3 K/mm3 (0.0-0.012) Nucleated RBC % 0.0 % % (0.0-0.2) Sodium 139 mmol/L mmol/L (137-145) Potassium 4.3 mmol/L mmol/L (3.4-5.0) Chloride 110 mmol/L H mmol/L (98-107) Carbon Dioxide 19 mmol/L L mmol/L (22-30) Anion Gap 10 mmol/L mmol/L (8-16) BUN 11 mg/dL mg/dL (7-17) Creatinine 0.90 mg/dL mg/dL (0.7-1.0) Estim Creat Clear Calc 60 ml/min ml/min Estimated GFR > 60 (59 - ) Glucose 102 mg/dL mg/dL (65-110) Calcium 9.8 mg/dL mg/dL (8.4-10.2) Total Bilirubin 1.0 mg/dL mg/dL (0.2-1.3) AST 27 U/L U/L (14-36) ALT 23 U/L U/L (6-35) Alkaline Phosphatase 87 U/L U/L (38-126) Total Protein 9.0 g/dL H g/dL (6.3-8.2) Albumin 5.2 g/dL H g/dL (3.5-5.1) Lipase 52 U/L U/L (23-300) Urine Color Yellow (Yellow) Urine Appearance Clear (Clear) Urine pH 7.0 (5.0-9.0) Ur Specific [place] 1.020 (1.001-1.035) Urine Protein Trace mg/dL mg/dL (Negative) Urine Glucose (UA) Negative mg/dL mg/dL (Negative) Urine Ketones Negative mg/dL mg/dL (Negative) Ur Blood (Man) 1+ H (Negative) Urine Nitrate Negative (Negative) Urine Bilirubin Negative (Negative) Urine Urobilinogen 0.2 mg/dL mg/dL (<2.0) Leukocyte Esterase Rfl Trace MAYELA/UL H MAYELA/UL (Negative) Urine RBC 6-10 /hpf H /hpf (0-2) Urine WBC 4-6 /hpf H /hpf Ur Squamous Epith Cells Few /hpf /hpf (Few) Urine Mucus Rare /lpf /lpf 10/17/21 10/17/21 05:40 05:40 WBC 16.2 K/mm3 H K/mm3 (4.5-10.0) RBC 3.95 M/mm3 L M/mm3 (4.2-5.4) Hgb 12.5 g/dL g/dL (12.0-15.0)
--- NOTE | 2021-10-17 07:20 | WPDHPUPDATE1 ---
History and Physical Update Update Date/Time: 10/17/21 07:20 History and Physical has been reviewed, including an updated exam of the patient. There are NO changes in the patient's condition. Risks, benefits, and alternatives have been discussed and questions answered. Patient agrees to proceed with procedure.
[2021-10-17] MEDS: SCOPOLAMINE 1.5 MG PATCH TRANSDERM (07:41)
[2021-10-17] MEDS: LIDOCAINE HCL 2% GEL UROJET 10 ML PKG MUCOUS MEM (07:41)
--- NOTE | 2021-10-17 07:46 | W.PM.PROC2 ---
Procedure Note - Detailed Date of Procedure 10/17/21 Pre-op Diagnosis Renal colic, right ureteral stone Post-op Diagnosis Same Procedure Performed Cystoscopy, right retrograde pyelogram, right ureteral stent insertion Surgeon Arash Ayon MD Findings Right UPJ stone with moderate hydronephrosis Description of Procedure Informed consent was obtained. Patient taken to room. She was given preoperative IV antibiotics on the floor. She was induced with a MAC anesthetic. She was placed in dorsal lithotomy position and prepped and draped in normal sterile fashion. We inserted a 22 F cystoscope through the urethra into the bladder. We inspected the bladder there no mucosal abnormalities. We cannulated the right ureteral orifice and a retrograde pyelogram revealed Right UPJ stone with moderate hydronephrosis. We were able to manipulate the wire past the stone into the upper pole and then a 4.8 F variable length stent with a curl in the upper pole and tabor bladder was placed. The bladder was emptied 10cc of lidocaine were instilled patient was awakened taken recovery room stable condition. Stone visible on KUB. Plan for outpatient ESWL procedure. Complications No immediate complications Condition Stable Disposition PACU
--- NOTE | 2021-10-17 14:53 | PCCCNOTE ---
On 10/17/21, the student, [Jhoana Starkey], provided care and completed [facility] documentation on this patient. I have reviewed the student's documentation and agree with the findings.
--- NOTE | 2021-11-19 12:53 | PM.DS ---
DS: Admitting Diagnosis Discharge Date 10/17/21 Admitting Diagnosis Ureteral stone DS: Discharge Diagnosis Discharge Diagnosis Plan 30F with 12mm right UPJ stone who underwent ureteral stenting. - plan outpatien definitive stone management DS: Summary Hospital Course Hospital Course: Patient presents to the ER and was admitted to the hospital due to significant pain from obstructing stone. Patient taken the operating room and stent was placed. The patient was then discharged home in stable condition with plan for outpatient definitive stone management Time Spent with Patient Time attestation: Total time spent providing and/or coordinating discharge services: Exam Narrative: Awake alert no acute distress. Breathing is unlabored. Abdomen soft without tenderness Discharge Plan Discharge Attending physician on discharge: Arash Ayon Consulting providers: Narciso Hernandez ; Juan Cook Discharging Clinician: Arash Ayon Patient Disposition: Home, Self-Care Activity: unlimited Diet: as tolerated Discharge Instructions: -- Urology office will call to set up outpatient ESWL (stone shock wave procedure) --you will need to avoid aspirin, nonsteroidal anti-inflammatories (ibuprofen, Aleve,etc) or any other blood thinners for 1 week prior to procedure. Patient Instructions: Antibiotic Form, How to Stop Smoking (GEN), Cystoscopy (DC), Ureteral Stent Placement (DC) Stand Alone Forms: General Discharge Information, Work/School Release IP Follow-up/Referrals: Arash Ayon MD [Physician] - Other (the office will call you to schedule follow up procedure) Discharge Medications: New hydrocodone-acetaminophen 5-325 mg tablet 1 tablet PO Q6H PRN (Reason: pain) Qty: 14 0RF No Action cetirizine [Zyrtec] 10 mg Tablet 10 mg PO DAILY PRN (Reason: Allergy Symptoms) albuterol 90 mcg/actuation Aerosol 90 mcg INHALATION PRN PRN (Reason: Shortness Of Breath) Excedrin Migraine 250-250-65 mg Tablet 1 tablet PO Q4-6H PRN (Reason: Migraine Headache) Date of admission: 10/16/21 18:15 Primary Care Provider: Teresa,Dejon Morfin Admitting Provider: Nathanael Saldana Attending physician on admission: Arash Ayon Condition: Stable
== END 2021-10-17 16:00 | disposition home or self-care (01) ==
LOC: ANHED 18:18 → ANH3MEDSUR 19:39
PROVIDERS: Emergency Medicine; Admitting Provider Urology; Emergency Provider Emergency Medicine; PCP Family Medicine; Visit Provider Urology
PROC: (CPT 52352; principal; 2021-10-17 07:30)
DX: N20.1 Calculus of ureter (principal); N23 Unspecified renal colic; R11.2 Nausea with vomiting, unspecified; F17.210 Nicotine dependence, cigarettes, uncomplicated; Z87.442 Personal history of urinary calculi
CPT/HCPCS: 52332; 36415; 74176; 74420; 80048; 80053; 81001; 81025; 83690; 85025; 96360; 96361; 96365; 96375; 99285; A9270; C1769; C1887; C2617; G0378; G0379; J0696; J0780; J1170; J1885; J2250; J2270; J2704; J7030; J7120; Q9966

== ENCOUNTER 2021-10-21 14:22 | Outpatient (CLI) | payer BC, SELFPAY ==
[2021-10-21 15:41] LABS: Partial Thromboplastin Time 35.7 SECONDS (22.3-36.8)
[2021-10-21 16:09] LABS: Prothrombin Time 12.9 Seconds (11.1-14.7)
== END 2021-10-21 14:23 | disposition home or self-care (01) ==
LOC: ANHSURGERY 14:29
PROVIDERS: PCP Family Medicine; Visit Provider Urology
DX: N20.1 Calculus of ureter (principal); Z01.818 Encounter for other preprocedural examination
CPT/HCPCS: 36415; 85610; 85730; 87086; 87088

== ENCOUNTER 2021-10-24 01:19 | Day surgery (SDC) | payer BC, SELFPAY ==
--- NOTE | 2021-10-20 12:46 | PC.NURSE ---
Report to the Outpatient Waiting Room, entrance under the green pavilion located off [facility], at time _0800 on date _10/24/21 . OR Time: __1000 . - You and your visitor will be asked a series of questions to screen for COVID 19 for your protection. - Only one visitor is allowed at this time. - The patient visitor is requested to leave or wait in car when not with patient. - A mask is required within the hospital. Patients may have clear liquids (water, carbonated beverages, clear teas, apple juice) until 3 hours prior to surgery with a maximum of 20 ounces. - No food from midnight until time of surgery - Infants may have breast milk until 4 hours before surgery, infant formula 6 hours prior to surgery. - Children will be allowed to drink immediately following surgery. If applicable, please bring a bottle or sippy cup to assist with drinking. Juice, water, soda, and popsicles are readily available. For infants on formula, please bring formula the day of surgery. Pacifiers are allowed. Take the following medications with a SIP of water the morning of surgery: ___PAIN PILL IF NEEDED Medications to discontinue per physician __EXCEDRIN 7 DAYS PRE OP Date to take last dose___10/16/21 Please no make-up, nail yakut, hairspray, perfume, deodorant, or body powder the day of surgery. No jewelry (including any body piercings) or valuables the day of surgery, leave them at home. Please take a shower or bath the night before, or the morning of, surgery with an antibacterial soap. Wear comfortable, loose fitting clothing. Children are encouraged to wear pajamas. - Jewelry must be removed prior to entering the operating room. Rings and piercings that are not removed may be cut off. - The hospital will not accept responsibility for valuables. - Please leave all valuables, including medications, at home the day of surgery. If you are going home after surgery, a licensed electric screw driver operator must drive you home. - NO public transportation without another adult. - We recommend that an adult stay with you for 24 hours following discharge. - We also recommend that you do not drive, make important decision, drink alcoholic beverages, or take any drugs that were not prescribed by your health care provider for at least 24 hours after your discharge time. For Pediatric surgeries, we recommend two adults accompany the child home (only one inside the building at this time). Follow any additional instructions given to you from your surgeon. If you or anyone in your household have experienced Covid symptoms in the past week, please notify your surgeon or the nurse liaison at the phone number below for possible testing. Telephone instructions given to ___PATIENT and asked if any additional questions and then verbalized understanding. Patient advised to call surgeon office or pre surgery nurse liaison [phone] if any additional questions.
[2021-10-20 12:55] VITALS: BMI 24.5
[2021-10-24] VITALS (7 sets, daily range): BP systolic 95–111; BP diastolic 62–77; PULSE 69–147; RESP 12–20; TEMP 36.4–36.5; O2SAT 95–100
--- NOTE | ~2021-10-24 | XR_ITS ---
XR abdomen/kub 1V 10/24/2021 08:25 Indication: Preop ESWL Procedure: KUB Comparison: No prior studies for comparison. Findings: There is a right renal stone in the lower pole measuring 1.4 cm. There is a right internal ureteral stent present. Bowel gas pattern nonobstructive. There is an IUD in the pelvis. No acute oss eous abnormality. Impression: 1: Right nephrolithiasis. Reviewed, dictated and finalized at location A. Impression: 1: Right nephrolithiasis.
[2021-10-24] MEDS: LACTATED RINGERS 1,000 ML 30 ML IV CONT ×2 (09:00→10:44)
--- NOTE | 2021-10-24 09:15 | P.PNAN_ITS ---
Anes - Eval Pre Procedure Procedure: Operation Date: 10/24/21 10:00 Proposed Procedures p Right Ureteral Extracorporeal Shock Wave Lithotripsy, - Paul Freed MD s Possible Cystoscopy, Possible Right Stent Removal - Paul Freed MD Date/Time: 10/24/21 09:15 Surgeon: joe Pre Op Diagnosis: right ureteral stone Patient Data Age: 30 Gender: F Height: 1.55 m Weight: 59.3 kg Last Vital Signs Temp 36.5 C 10/24/21 08:38 Pulse 97 10/24/21 08:38 Resp 20 10/24/21 08:38 BP 104/65 10/24/21 08:38 Pulse Ox 99 10/24/21 08:38 O2 Del Method Room Air 10/24/21 08:38 Allergies Allergy/AdvReac Type Severity Reaction Status Date / Time metoclopramide [From Reglan] AdvReac Mild Itching Verified 10/24/21 08:33 ondansetron [From Zofran] AdvReac Mild Itching Verified 10/24/21 08:33 promethazine [From Phenergan] AdvReac Mild Itching Verified 10/24/21 08:33 Home Medications Medication Instructions Recorded Confirmed Type hydrocodone 5 mg-acetaminophen 325 1 tablet PO Q6H PRN pain #14 tabs 10/17/21 10/24/21 Rx mg tablet albuterol 90 mcg/actuation aerosol 90 mcg inhalation PRN PRN 10/20/21 10/24/21 History inhaler Shortness Of Breath epdapqt-[id number]-[id number] 250 1 tablet PO Q4-6H PRN Migraine 10/20/21 10/24/21 History mg-250 mg-65 mg tablet (Excedrin Headache Migraine) cetirizine 10 mg tablet (Zyrtec) 10 mg PO DAILY PRN Allergy Symptoms 10/20/21 10/24/21 History Patient hx anesthesia problems: none Family hx anesthesia problems: none Results Review: All pre-operative results and documents have been reviewed as part of the pre- operative evaluation. [facility] Past Medical History Medical History Dehydration Gastroenteritis Intractable vomiting Leukocytosis Patient denies significant medical history Surgical History Surgical History (Updated 10/17/21 @ 07:17 by Juan Jose Tobias MD) History of mandibular surgery Hx of cystoscopy No pertinent past surgical history Family History Family History Mother Fibromyalgia Father Acute myocardial infarction Social History Social History Smoking packs per day: 1 Smoking cigarettes per day: 20.0 Years smoked: 17 Smoking pack-years: 17.00 Smoking status: Current every day smoker Tobacco type: cigarettes Alcohol intake: current Drinks per week: 1 Other substance usage details: One drink per month Living arrangements: with family Gender identity (if verbalized by the patient): Female Sexual Orientation (if Verbalized by the Patient): Straight or Heterosexual Spiritual care concerns: No Exam Day of Procedure 10/24/21 09:15
--- NOTE | 2021-10-24 09:17 | P.PNAN_ITS ---
Anes - Eval Final PreProcedure Day of Procedure 10/24/21 09:17 Patient weight: normal Heart: regular rate and rhythm Lungs: decreased breath sounds Airway: Mallampati scale class II and special considerations poor dentition Neurological: alert and oriented Last oral intake: >/= 8 hours ASA classification: III Emergent: no Anesthetic plan: proceed Anesthesia type and monitoring: general LMA and standard monitoring Results Review: All pre-operative results and documents have been reviewed as part of the pre- operative evaluation. Informed Consent: The patient's anesthetic plan and its attendant risks and benefits were discussed with the patient/family/POA. Questions were solicited and answers provided to the satisfaction of the patient/family/POA.
--- NOTE | 2021-10-24 09:18 | WPDHPUPDATE1 ---
History and Physical Update Update Date/Time: 10/24/21 09:18 History and Physical has been reviewed, including an updated exam of the patient. There are NO changes in the patient's condition. Risks, benefits, and alternatives have been discussed and questions answered. Patient agrees to proceed with procedure. Proceed with eswl right renal calculus
[2021-10-24] MEDS: ceFAZolin 2 GM/D5W 50 ML 2 GM/50 ML BAG IVPB (09:22)
--- NOTE | 2021-10-24 10:00 | W.PM.PROC2 ---
Procedure Note - Detailed Date of Procedure 10/24/21 Pre-op Diagnosis Right renal calculus Post-op Diagnosis Same Procedure Performed Lithotripsy of right renal calculus Surgeon Paul Freed MD Description of Procedure Patient is taken the operative suite correctly identified. Once anesthesia was obtained the stone was localized in both planes. Two thousand five hundred shocks were given the stone. There appeared to be fairly good fragmentation. The patient was taken recovery stable condition. She will follow-up in 7-10 days with KUB. Drains Yes Packing No Pathology None sent Complications No immediate complications Condition Stable Disposition PACU
[2021-10-24] MEDS: SCOPOLAMINE 1.5 MG PATCH TRANSDERM (10:10)
--- NOTE | 2021-10-24 11:52 | SUR.PHASEII ---
pt meets discharge criteria and is waiting on her ride.
== END 2021-10-24 12:11 | disposition home or self-care (01) ==
PROVIDERS: PCP Family Medicine; Visit Provider Urology
PROC: (CPT 50590; principal; 2021-10-24 10:00)
DX: N20.1 Calculus of ureter (principal); F17.210 Nicotine dependence, cigarettes, uncomplicated
CPT/HCPCS: 50590; 74018; A9270; J0690; J1100; J2250; J2704; J7120

== ENCOUNTER 2022-06-16 11:44 | Emergency (ER) | payer BC, SELFPAY ==
--- NOTE | 2022-06-16 13:01 | PC.NURSE ---
Patient informed ED bioinformatics research technician Yamel that she was feeling better and that she was going to leave. Patient ambulated out of emergency department without assistance.
== END 2022-06-16 13:15 | disposition left against medical advice (07) ==
PROVIDERS: PCP Family Medicine
DX: Z53.21 Procedure and treatment not carried out due to patient leaving prior to being seen by health care provider (principal)
CPT/HCPCS: 99199

== ENCOUNTER 2022-12-28 19:20 | Emergency (ER) | payer BC, SELFPAY ==
[2022-12-28 19:21] VITALS: BP 152/114; PULSE 105; RESP 16; TEMP 36.8; O2SAT 98
--- NOTE | 2022-12-28 19:39 | ED.EAR ---
HPI - Ear Problem General Chief complaint: Ear Stated complaint: R. ear pain Time Seen by Provider: 12/28/22 19:29 Source: patient Mode of arrival: ambulatory Limitations: no limitations History of Present Illness HPI Narrative: This is a 32-year-old female that presents to the emergency department for right ear pain ongoing over the last couple of days. Reports drainage from the ear. Reports she is getting over a cold. Denies fevers. Related Data Home Medications Medication Instructions Recorded Confirmed albuterol 90 mcg/actuation aerosol 90 mcg inhalation PRN PRN 10/20/21 10/24/21 inhaler Shortness Of Breath hfpxoys-fequqkmcmoycv-xrctbahw 250 1 tablet PO Q4-6H PRN Migraine 10/20/21 10/24/21 mg-250 mg-65 mg tablet (Excedrin Headache Migraine) cetirizine 10 mg tablet (Zyrtec) 10 mg PO DAILY PRN Allergy Symptoms 10/20/21 10/24/21 Allergies Allergy/AdvReac Type Severity Reaction Status Date / Time metoclopramide [From Reglan] AdvReac Mild Itching Verified 10/24/21 08:33 ondansetron [From Zofran] AdvReac Mild Itching Verified 10/24/21 08:33 promethazine [From Phenergan] AdvReac Mild Itching Verified 10/24/21 08:33 Review of Systems Review of Systems: CONSTITUTIONAL: Denies fever ENT: Reports congestion, and otalgia. All systems reviewed & are unremarkable except as noted in HPI and below PMFSH Past Medical History Medical History (Updated 12/28/22 @ 19:41 by Michelle Norris PA-C) Dehydration Gastroenteritis Intractable vomiting Leukocytosis Patient denies significant medical history Surgical History Surgical History (Updated 10/17/21 @ 07:17 by Juan Jose Tobias MD) History of mandibular surgery Hx of cystoscopy No pertinent past surgical history Family History Family History Mother Fibromyalgia Father Acute myocardial infarction Social History Social History Smoking packs per day: 1 Smoking cigarettes per day: 20.0 Years smoked: 17 Smoking pack-years: 17.00 Smoking status: Current every day smoker Tobacco type: cigarettes Alcohol intake: current Drinks per week: 1 Other substance usage details: One drink per month Living arrangements: with family Gender identity (if verbalized by the patient): Female Sexual Orientation (if Verbalized by the Patient): Straight or Heterosexual Spiritual care concerns: No Exam Narrative: GENERAL: Well-appearing, well-nourished, and in no acute distress. HEAD: Normocephalic, atraumatic. EYES: EOMI. ENT: Nares clear, no rhinorrhea or epistaxis. Mucous membranes moist. Oropharynx without tonsillar hypertrophy exudate or other lesions. Left TM pearly waller, non-bulging. Right TM bulging and erythematous NECK: Supple. No adenopathy or masses. CHEST: No respiratory distress. HEART: Regular rate EXTREMITIES: Normal range of motion. No edema. SKIN: Warm, dry, no rash. NEURO: No focal deficits. Alert and oriented x3. PSYCH: Normal mood and affect Course Course Emergency Course: Patient agrees with plan of care Vital Signs Vital signs: Vital Signs Temperature 98.2 F 12/28/22 19:21 Pulse Rate 105 H 12/28/22 19:21 Respiratory Rate 16 12/28/22 19:21 Blood Pressure 152/114 H 12/28/22 19:21 Pulse Oximetry 98 12/28/22 19:21 Oxygen Delivery Room Air 12/28/22 19:21 Temperature 98.2 F 12/28/22 19:21 Pulse Rate 105 H 12/28/22 19:21 Respiratory Rate 16 12/28/22 19:21 Blood Pressure 152/114 H 12/28/22 19:21 Pulse Oximetry 98 12/28/22 19:21 Oxygen Delivery Room Air 12/28/22 19:21 Medical Decision Making MDM Narrative Medical decision making narrative: Patient presents to the emergency department for right ear pain ongoing over the last couple of days after recently getting over a cold. Exam is consistent with otitis media. She is afebrile and nontoxic-appearing. Will
[2022-12-28] MEDS: AMOXICILLIN/CLAVULANATE K 875-125 MG TAB 1 TABLET PO (19:46)
[2022-12-28 20:17] VITALS: BP 150/88; PULSE 99; RESP 20; O2SAT 98
== END 2022-12-28 20:10 | disposition home or self-care (01) ==
LOC: ANHED 19:50
PROVIDERS: Emergency Provider Physician Assistant; PCP Family Medicine
DX: H66.91 Otitis media, unspecified, right ear (principal); F17.210 Nicotine dependence, cigarettes, uncomplicated
CPT/HCPCS: 99283; A9270

== ENCOUNTER 2023-04-20 09:23 | Emergency (ER) | payer MEDICAID, SELFPAY ==
[2023-04-20] VITALS (9 sets, daily range): BP systolic 120–129; BP diastolic 90–98; PULSE 92–134; RESP 13–21; TEMP 36.8; O2SAT 96–100
--- NOTE | ~2023-04-20 | CT_ITS ---
EXAMINATION: CT abdomen pelvis w con DATE: 04/20/2023 10:42 INDICATION: Right flank pain. TECHNIQUE: Computed tomography (CT) of the abdomen and pelvis was performed with 100 mL Omnipaque 350 intravenous contrast. Automated exposure control and iterative reconstruction technique were employe d. The dose-length product was 304.12 mGy-cm. COMPARISON: CT abdomen and pelvis 10/16/2021 FINDINGS: The visualized portions of the lung bases are clear without pneumonia or pleural effusion. The heart size is normal. No pericardial effusion. The liver, gallbladder, spleen, pancreas, and adre nal glands are normal. There is mild atrophy of right kidney. There is severe right hydronephrosis. T here is urothelial thickening and enhancement involving the right renal pelvis and fat stranding arou nd the right renal pelvis. There are multiple stones in right kidney including a staghorn calculus. T here is a right internal ureteral stent in expected position. Right-sided hydroureter is noted. There is a 4.4 cm stone in the bladder that surrounds the distal stent. There is bladder wall thickening, consistent with cystitis. There is a 3 mm stone in left kidney. There is an intrauterine device in ex pected position. There are no dilated loops of bowel. The appendix is normal. There are no pathologic ally enlarged lymph nodes. There is physiologic fluid in the pelvis. There is a 2.0 cm dominant folli rip in right ovary. There is mild thoracic and lumbar spondylosis. IMPRESSION: 1. Right kidney stones including a staghorn calculus. Severe right hydronephrosis and hydroureter wit h pyelitis and mild right kidney atrophy. Although there is a right internal ureteral stent in expect ed position, a large bladder stone surrounds the distal stent and abuts the ureterovesicular junction . 2. Small nonobstructing left kidney stone. Reviewed, dictated and finalized at location E. RAFT PAINTER APPRENTICE IMPRESSION: 1. Right kidney stones including a staghorn calculus. Severe right hydronephros is and hydroureter with pyelitis and mild right kidney atrophy. Although there is a right internal ureteral stent in expected position, a large bladder stone surrounds the distal stent and abuts the ureterovesicular junction. 2. Small nonobstructing left kidney stone.
--- NOTE | ~2023-04-20 | XR_ITS ---
EXAMINATION: XR abdomen/kub 1V DATE: 04/20/2023 12:37 INDICATION: Kidney stone. TECHNIQUE: A supine view of the abdomen on 2 radiographs was obtained. COMPARISON: CT abdomen and pelvis 04/20/2023 FINDINGS: There are no dilated loops of bowel. There is contrast in the renal collecting system. Ther e is severe right hydronephrosis. There are stones in the right kidney and bladder. There is a right internal ureteral stent in expected position. There is an intrauterine device in expected position. IMPRESSION: 1. Severe right hydronephrosis. 2. Stones in the right kidney and bladder including a large stone encasing the distal aspect of the r ight internal ureteral stent. Reviewed, dictated and finalized at location E. ING SUPERVISOR IMPRESSION: 1. Severe right hydronephrosis. 2. Stones in the right kidney and bladder including a large stone encasing the distal aspect of the right internal ureteral stent.
--- NOTE | 2023-04-20 09:36 | ED.GENADULT ---
HPI - General Adult General Chief complaint: Unspecified Stated complaint: peeing chunks Time Seen by Provider: 04/20/23 09:36 Source: patient and family (spouse) Mode of arrival: ambulatory Limitations: no limitations History of Present Illness HPI narrative: Patient is a 32-year-old female with a past medical history as noted below including kidney stones with stent placement who presents emergency department today ambulatory with a steady gait with her spouse for evaluation of right-sided kidney/flank pain as well as right lower quadrant abdominal pain, pain with urination, blood in her urine which has been going on for many months as well as recently starting to pass white big chunks in her urine. she denies fever. she has had chills, nausea. denies vomiting. denies CP or SOB. denies chance of , states she took a test yesterday that was negative. she states she has been dealing with blood in her urine and kidney pain for over a year now, the last week it has gotten much worse for her. she never followed up with the urologist she states to have a stent removed. Related Data Home Medications Medication Instructions Recorded Confirmed albuterol 90 mcg/actuation aerosol 90 mcg inhalation PRN PRN 10/20/21 10/24/21 inhaler Shortness Of Breath bwzopiv-eqslzftrjqloj-zjyxenxq 250 1 tablet PO Q4-6H PRN Migraine 10/20/21 10/24/21 mg-250 mg-65 mg tablet (Excedrin Headache Migraine) cetirizine 10 mg tablet (Zyrtec) 10 mg PO DAILY PRN Allergy Symptoms 10/20/21 10/24/21 Allergies Allergy/AdvReac Type Severity Reaction Status Date / Time metoclopramide [From Reglan] AdvReac Mild Itching Verified 10/24/21 08:33 ondansetron [From Zofran] AdvReac Mild Itching Verified 10/24/21 08:33 promethazine [From Phenergan] AdvReac Mild Itching Verified 10/24/21 08:33 Review of Systems Review of Systems: CONSTITUTIONAL: Denies fever, chills, or sweats. EYES: Denies visual changes, redness, or discharge. ENT: Denies rhinorrhea, congestion, sore throat, or otalgia. CARDIOVASCULAR: Denies chest pain, palpitations, or edema. RESPIRATORY: Denies cough or dyspnea. GASTROINTESTINAL: +RLQ and right flank pain.+nausea/vomiting. denies constipation or diarrhea. GENITOURINARY: +hematuria, dysuria, passing large white chunks, dark urine, right kidney pain SKIN: Denies rash or itching. MUSCULOSKELETAL: Denies back pain, joint pain, or myalgia. NEUROLOGIC: Denies headache, numbness, or weakness. PSYCHIATRIC: Denies anxiety or depression. All systems reviewed & are unremarkable except as noted in HPI and below PMFSH Past Medical History Medical History Dehydration Gastroenteritis Intractable vomiting Leukocytosis Patient denies significant medical history Surgical History Surgical History History of mandibular surgery Hx of cystoscopy No pertinent past surgical history Family History Family History Mother Fibromyalgia Father Acute myocardial infarction Social History Social History Smoking packs per day: 1 Smoking cigarettes per day: 20.0 Years smoked: 17 Smoking pack-years: 17.00 Smoking status: Current every day smoker Tobacco type: cigarettes Alcohol intake: current Drinks per week: 1 Other substance usage details: One drink per month Living arrangements: with family Gender identity (if verbalized by the patient): Female Sexual Orientation (if Verbalized by the Patient): Straight or Heterosexual Spiritual care concerns: No Exam Narrative: GENERAL: Well-appearing, thin female, slightly unkempt, well-nourished, and in no acute distress. HEAD: Normocephalic, atraumatic. EYES: PERRLA and EOMI. ENT: Nares clear, no rhinorrhea or epistaxis. Mucous membranes moist. poor dental h
[2023-04-20 10:12] LABS: Basophils Absolute Auto 0.1 K/mm3 (0.0-0.1); Basophils Percent Auto 0.8 % (0.2-1.2); Eosinophils Absolute Auto 0.7 K/mm3 (0-0.3); Eosinophils Percent Auto 5.7 % (0-4.4); Hematocrit 44.9 % (37.0-47.0); Hemoglobin 14.4 g/dL (12.0-15.0); Immature Granulocyte Absolute 0.05 K/mm3 (0.00-0.031); Immature Granulocyte Percent A 0.4 % (0-0.5); Lymphocytes Absolute Auto 2.83 K/mm3 (0.9-3.2); Lymphocytes Percent Auto 22.4 % (18.3-44.2); Mean Corpuscular HGB Conc 32.1 g/dl (32-36); Mean Corpuscular Hemoglobin 31.2 pg (26-34); Mean Corpuscular Volume 97.2 fl (80-100); Mean Platelet Volume 9.4 fl (7.4-10.4); Monocytes Absolute Auto 1.6 K/mm3 (0.1-0.6); Monocytes Percent Auto 12.8 % (2.6-8.5); Neutrophils Absolute Auto 7.3 K/mm3 (1.3-6.7); Neutrophils Percent Auto 57.9 % (45.5-73.1); Platelet Count Result 510 k/mm3 (150-375); Red Blood Count 4.62 M/mm3 (4.2-5.4); Red Cell Distribution Width 13.3 % (11.5-14.5); White Blood Count 12.7 K/mm3 (4.5-10.0)
[2023-04-20 10:21] LABS: Alanine Aminotransferase 19 U/L (6-35); Albumin Level 4.2 g/dL (3.5-5.1); Alkaline Phosphatase 131 U/L (38-126); Anion Gap 12 mmol/L (8-16); Aspartate Amino Transferase 19 U/L (14-36); Bilirubin,Total 0.5 mg/dL (0.2-1.3); Blood Urea Nitrogen 15 mg/dL (7-17); Calcium 9.6 mg/dL (8.4-10.2); Carbon Dioxide 15 mmol/L (22-30); Chloride 111 mmol/L (98-107); Estimated CRCL calculation 39 ml/min; Estimated Glomerular Filt Rate 43; Glucose 94 mg/dL (65-110); Potassium 3.9 mmol/L (3.4-5.0); Sodium 138 mmol/L (137-145)
[2023-04-20 10:22] LABS: Lactic Acid Reflex 0.8 mmol/L (0.7-2.0)
[2023-04-20 10:28] LABS: Bacteria Urine 4+ /hpf; Need Manual Microscopic Reviewed; RBC Urine >100 /hpf (0-2); Squamous Epithelial Cell Urine Occasional /hpf (Few); WBC Urine >100 /hpf
[2023-04-20 10:29] LABS: Appearance Urine Turbid (Clear); Bilirubin Urine Negative (Negative); Blood Urine 3+ (Negative); Glucose Urine UA Negative (Negative); Ketones Urine Negative (Negative); Leukocyte Esterase Ur 3+ LEU/UL (Negative); Nitrate Urine Negative (Negative); Protein Urine 3+ mg/dL (Negative); Specific Grav Ur 1.021 (1.001-1.035); Urobilinogen Urine 0.2 mg/dL (<2.0)
[2023-04-20 10:30] LABS: Color Urine Yellow (Yellow)
[2023-04-20 10:31] LABS: Add Urine Microscopic? YES
[2023-04-20] MEDS: cefTRIAXone 2 GM/NS 100 ML 2 GM/100 ML BAG IVPB (11:40)
--- NOTE | 2023-04-20 14:09 | WPDURCON ---
Assessment and Plan Assessment and plan (1) UTI (urinary tract infection): Qualifiers: Urinary tract infection type: acute pyelonephritis Qualified Code(s): N10 - Acute pyelonephritis Code(s): N39.0 - Urinary tract infection, site not specified Status: Acute Assessment and Plan: Patient has left AMA. Cultures are pending at this time. She was discharged home with oral antibiotics and instructions to follow up to the ER if symptoms worsen. (2) Hydronephrosis concurrent with and due to calculi of kidney and ureter: Code(s): N13.2 - Hydronephrosis with renal and ureteral calculous obstruction Status: Acute Assessment and Plan: Hydronephrosis appears to be chronic in nature secondary to the stent and stone. She is denying any significant flank pain at this time. She has seen a outside urologist at [facility] in august and was advised to follow up at [facility] or [facility]. She stated that she will follow-up with them. If pain recurs or becomes febrile she will require right nephrostomy tube placement (3) Bladder stone: Code(s): N21.0 - Calculus in bladder Status: Acute Assessment and Plan: This bladder stone is encompassing most of the bladder. Decision will need to be made whether to do an open cystolithotomy verses attempting holmium laser of this large bladder stone. The right ureteral stent and right staghorn stones will also need to be addressed by the outside urologist and will most likely require a PCNL Urology Consult Note HPI Date Seen: 04/20/23 Time Seen: 12:00 Primary Care Provider: Dejon Moore, Consult Narrative Reason for consult: Retained right ureteral stent with right renal calculi, bladder stone, hydr Narrative: Phylicia Lewis is a 32 year old female who had a right ureteral stent placed in October 2021 for a 12 mm right UPJ stone. Patient did not follow up after that but then did see a urologist a [place] in August of this year. She had also developed a 4 cm bladder stone encompassing the distal pigtail of the stent. She still has the right renal stone which now was a more of a staghorn stone. And she has what appears to be chronic hydro on the right side. He had recommended she be seen either at [facility] for [facility]. She did not follow up and presented today after voiding which she stated was some pieces of tissue from her urethra. She denied any fevers. She does have nocturia times 4-5 with frequency every 20-30 [place] [address]. Creatinine slightly elevated at 1.4 and urinalysis with 3+ leukocytes and greater than 100 white cells. 4+ bacteria. Patient was to be admitted for IV antibiotics and possible nephrostomy tube if for white count did not improve or she developed a fever. Patient was signing out AMA as she needed to get home to her house and her family. She was made aware by the emergency room that she needs to follow up as an outpatient. She will return if she worsens. Review of Systems Review of Systems: All systems reviewed & are unremarkable except as noted in HPI and below PMFSH Past Medical History Medical History Dehydration Gastroenteritis Intractable vomiting Leukocytosis Patient denies significant medical history Surgical History Surgical History History of mandibular surgery Hx of cystoscopy No pertinent past surgical history Family History Family History Mother Fibromyalgia Father Acute myocardial infarction Social History Social History Smoking packs per day: 1 Smoking cigarettes per day: 20.0 Years smoked: 17 Smoking pack-years: 17.00 Smoking status: Current every day smoker Tobacco t
== END 2023-04-20 12:56 | disposition left against medical advice (07) ==
PROVIDERS: Emergency Provider Nurse Practitioner; PCP Family Medicine
DX: N10 Acute pyelonephritis (principal); N13.2 Hydronephrosis with renal and ureteral calculous obstruction; N17.9 Acute kidney failure, unspecified; Z79.51 Long term (current) use of inhaled steroids; F17.210 Nicotine dependence, cigarettes, uncomplicated
CPT/HCPCS: 36415; 74018; 74177; 80053; 81001; 81025; 83605; 85025; 87040; 87086; 87088; 96361; 96365; 99284; J0696; J7030; Q9967

== ENCOUNTER 2023-08-26 15:40 | Emergency (ER) | payer BC, SELFPAY ==
--- NOTE | ~2023-08-26 | CT_ITS ---
EXAMINATION: CT abdomen pelvis w con DATE: 08/26/2023 18:06 INDICATION: Abdominal pain. TECHNIQUE: Computed tomography (CT) of the abdomen and pelvis was performed with 100 mL Omnipaque 350 intravenous contrast. Automated exposure control and iterative reconstruction technique were employe d. The dose-length product was 180.31 mGy-cm. COMPARISON: CT abdomen and pelvis 04/20/2023 FINDINGS: The visualized portions of the lung bases are clear without pneumonia or pleural effusion. The heart size is normal. No pericardial effusion. The liver, gallbladder, spleen, pancreas, and adre nal glands are normal. There is cortical thinning of right kidney. There is severe right hydronephros is. There are multiple stones in right kidney measuring up to 17 mm in right renal pelvis. A stone in right renal pelvis encases the proximal aspect of the internal ureteral stent. There is right hydrou reter. There is urothelial thickening and enhancement in the right renal collecting system. There is a 4.5 cm stone in the bladder that encases the distal stent. There is a 3 mm stone in left kidney. Th ere is an intrauterine device in expected position. There are no dilated loops of bowel. The appendix is normal. There are no pathologically enlarged lymph nodes. There is no free intraperitoneal fluid. There is mild lumbar spondylosis. IMPRESSION: 1. Stones in the right kidney and bladder with stones encasing both the proximal and distal aspects o f the right internal ureteral stent. 2. Severe right hydronephrosis and hydroureter with pyelitis again seen. 3. Nonobstructing left kidney stone. Reviewed, dictated and finalized at location E. IMPRESSION: 1. Stones in the right kidney and bladder with stones encasing both the proxima l and distal aspects of the right internal ureteral stent. 2. Severe right hydronephrosis and hydroureter with pyelitis again seen. 3. Nonobstructing left kidney stone.
[2023-08-26 15:46] VITALS: BP 115/83; PULSE 120; RESP 20; TEMP 36.6; O2SAT 97
[2023-08-26 17:01] VITALS: BP 143/97; PULSE 128; RESP 20; O2SAT 98
[2023-08-26 17:02] VITALS: PULSE 115; RESP 14; TEMP 37.1; O2SAT 98
[2023-08-26 17:40] LABS: Basophils Absolute Auto 0.1 K/mm3 (0.0-0.1); Basophils Percent Auto 0.4 % (0.2-1.2); Eosinophils Absolute Auto 0.5 K/mm3 (0-0.3); Eosinophils Percent Auto 3.3 % (0-4.4); Hematocrit 33.9 % (37.0-47.0); Hemoglobin 10.9 g/dL (12.0-15.0); Immature Granulocyte Absolute 0.07 K/mm3 (0.00-0.031); Immature Granulocyte Percent A 0.5 % (0-0.5); Lymphocytes Absolute Auto 3.51 K/mm3 (0.9-3.2); Lymphocytes Percent Auto 23.4 % (18.3-44.2); Mean Corpuscular HGB Conc 32.2 g/dl (32-36); Mean Corpuscular Hemoglobin 33.1 pg (26-34); Mean Platelet Volume 8.7 fl (7.4-10.4); Monocytes Absolute Auto 1.3 K/mm3 (0.1-0.6); Monocytes Percent Auto 8.6 % (2.6-8.5); Neutrophils Absolute Auto 9.6 K/mm3 (1.3-6.7); Neutrophils Percent Auto 63.8 % (45.5-73.1); Platelet Count Result 799 k/mm3 (150-375); Red Blood Count 3.29 M/mm3 (4.2-5.4); Red Cell Distribution Width 15.1 % (11.5-14.5)
[2023-08-26 17:49] LABS: Lactic Acid Reflex 1.1 mmol/L (0.7-2.0)
[2023-08-26 17:51] LABS: Alanine Aminotransferase 12 U/L (6-35); Albumin Level 3.6 g/dL (3.5-5.1); Alkaline Phosphatase 172 U/L (38-126); Anion Gap 12 mmol/L (4-12); Aspartate Amino Transferase 14 U/L (14-36); Bilirubin,Total 0.3 mg/dL (0.2-1.3); Blood Urea Nitrogen 17 mg/dL (7-17); Calcium 8.8 mg/dL (8.4-10.2); Carbon Dioxide 16 mmol/L (22-30); Chloride 111 mmol/L (98-107); Estimated CRCL calculation 49 ml/min; Estimated Glomerular Filt Rate 57; Glucose 91 mg/dL (65-110); Potassium 3.4 mmol/L (3.4-5.0); Sodium 139 mmol/L (137-145)
[2023-08-26 17:52] LABS: Appearance Urine Turbid (Clear); Bacteria Urine 4+ /hpf; Bilirubin Urine Negative (Negative); Blood Urine 3+ (Negative); Color Urine Yellow (Yellow); Glucose Urine UA Negative (Negative); Ketones Urine Negative (Negative); Leukocyte Esterase Ur 3+ LEU/UL (Negative); Need Manual Microscopic Reviewed; Nitrate Urine Negative (Negative); Non Pathogenic Casts >20; Protein Urine 3+ mg/dL (Negative); RBC Urine >100 /hpf (0-2); Specific Grav Ur 1.026 (1.001-1.035); Squamous Epithelial Cell Urine None Seen /hpf (Few); WBC Urine >100 /hpf (0-3); pH Urine 7.5 (5.0-9.0)
[2023-08-26 17:55] LABS: Lipase 39 U/L (23-300)
[2023-08-26 18:01] LABS: Add Urine Microscopic? YES
[2023-08-26] MEDS: SODIUM CHLORIDE 0.9% IV 1,000 ML 999 ML IV CONT (18:13)
[2023-08-26] MEDS: PROCHLORPERAZINE EDISYLATE 10 MG/2 ML VIAL 5 MG IV PUSH (18:14)
[2023-08-26] MEDS: KETOROLAC 15 MG/ML VIAL (*BKC) IV PUSH (18:48)
--- NOTE | 2023-08-26 18:54 | PC.NURSE ---
This RN walked into patient room for medication administration. Pt standing in room, hunched over bed. Pt states this has nothing to do with you hun but as soon as I get that medicine I have to get out of here. Pt states she has hx of claustrophobia and being in a hospital room triggers it. Asked patient if she needed anything for anxiety, if she would like to take a walk outside of the room. Pt denied all options, reports this always happens when she goes to the hospital. When asked if anything would help she states being in my 's arms at home . made aware. Pt signed out AMA in NAD.
--- NOTE | 2023-08-26 19:58 | ED.GENADULT ---
HPI - General Adult General Chief complaint: Nausea/Vomiting/Diarrhea Stated complaint: vomiting Time Seen by Provider: 08/26/23 16:57 Source: patient Mode of arrival: ambulatory Limitations: no limitations History of Present Illness HPI narrative: 32-year-old with a history kidney stone status post renal stent put in about 2 years ago here with complaints of nausea, vomiting, right-sided back pain which has been ongoing for past 2 years. Patient states that she was seen here in the hospital for the same around [facility]. Patient states that she has been constantly vomiting every day and nothing helps. She also states stated that she takes 1500 mg of acetaminophen every 4 hours and 1200 mg of ibuprofen every 6 hours for back pain. 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 Denies any genitourinary Onset (ago): year(s) (2) Radiation: back Severity: moderate Quality: aching Pain Consistency: constant Relieving factors: none Exacerbating factors: none Associated symptoms: weakness Treatments prior to arrival: NSAID Related Data Home Medications Medication Instructions Recorded Confirmed albuterol 90 mcg/actuation aerosol 90 mcg inhalation PRN PRN 10/20/21 10/24/21 inhaler Shortness Of Breath dultzja-jqeutyyfytyxh-uirhsblq 250 1 tablet PO Q4-6H PRN Migraine 10/20/21 10/24/21 mg-250 mg-65 mg tablet (Excedrin Headache Migraine) cetirizine 10 mg tablet (Zyrtec) 10 mg PO DAILY PRN Allergy Symptoms 10/20/21 10/24/21 Allergies Allergy/AdvReac Type Severity Reaction Status Date / Time metoclopramide [From Reglan] AdvReac Mild Itching Verified 10/24/21 08:33 ondansetron [From Zofran] AdvReac Mild Itching Verified 10/24/21 08:33 promethazine [From Phenergan] AdvReac Mild Itching Verified 10/24/21 08:33 Review of Systems Review of Systems: All systems reviewed & are unremarkable except as noted in HPI and below Constitutional: Constitutional: Reports no additional constitutional complaints Eyes: Eyes: Reports no additional eye complaints ENT: Reports system reviewed and no additional complaints, except as documented Cardiovascular: Cardiovascular: Reports no additional cardiovascular complaints Respiratory: Respiratory: Reports no additional respiratory complaints Gastrointestinal: Gastrointestinal: Reports as per HPI Genitourinary: Genitourinary: Reports as per HPI Musculoskeletal: Musculoskeletal: Reports no additional musculoskeletal complaints Integumentary/Breasts: Skin/Breast: Reports system reviewed and no additional complaints, except as docu PMFSH Past Medical History Medical History Dehydration Gastroenteritis Intractable vomiting Leukocytosis Patient denies significant medical history Surgical History Surgical History History of mandibular surgery Hx of cystoscopy No pertinent past surgical history Family History Family History Mother Fibromyalgia Father Acute myocardial infarction Social History Social History Smoking packs per day: 1 Smoking cigarettes per day: 20.0 Years smoked: 17 Smoking pack-years: 17.00 Smoking status: Current every day smoker Tobacco type: cigarettes Alcohol intake: current Drinks per week: 1 Other substance usage details: One drink per month Living arrangements: with family Gender identity (if verbalized by the patient): Female Sexual Orientation (if Verbalized by the Patient): Straight or Heterosexual Spiritual care concerns: No Exam Narrative: GENERAL: Well-a
== END 2023-08-26 19:00 | disposition left against medical advice (07) ==
PROVIDERS: Emergency Provider Family Medicine; PCP Family Medicine
DX: R11.2 Nausea with vomiting, unspecified (principal); M54.9 Dorsalgia, unspecified; F17.210 Nicotine dependence, cigarettes, uncomplicated; Z79.82 Long term (current) use of aspirin; N13.6 Pyonephrosis; Z96.0 Presence of urogenital implants
CPT/HCPCS: 36415; 74177; 80053; 81001; 81025; 83605; 83690; 85025; 87077; 87086; 87088; 96361; 96374; 96375; 99284; J0780; J1885; J7030; Q9967

== ENCOUNTER 2023-09-14 04:47 | Emergency (ER) | payer BC, SELFPAY ==
--- NOTE | ~2023-09-14 | XR_ITS ---
Portable chest x-ray Comparison: None Clinical History: Shortness of breath Findings: Lungs are clear, without focal consolidation or pleural effusion. Cardiomediastinal silho uette is unremarkable. Bones and soft tissues are unremarkable. Impression: Normal chest. Reviewed, dictated and finalized at location . Impression: Normal chest.
[2023-09-14 04:42] VITALS: PULSE 144; RESP 26; TEMP 36.6; O2SAT 100
--- NOTE | 2023-09-14 04:54 | ECG_ITS ---
SEE SCANNED COPY FOR CONFIRMED REPORT MTDD
[2023-09-14 04:55] VITALS: O2SAT 99
[2023-09-14 05:03] VITALS: PULSE 130
[2023-09-14 05:07] LABS: Basophils Absolute Auto 0.1 K/mm3 (0.0-0.1); Basophils Percent Auto 0.4 % (0.2-1.2); Eosinophils Absolute Auto 0.1 K/mm3 (0-0.3); Eosinophils Percent Auto 0.6 % (0-4.4); Hematocrit 36.2 % (37.0-47.0); Hemoglobin 12.1 g/dL (12.0-15.0); Immature Granulocyte Absolute 0.12 K/mm3 (0.00-0.031); Immature Granulocyte Percent A 0.5 % (0-0.5); Lymphocytes Absolute Auto 3.77 K/mm3 (0.9-3.2); Lymphocytes Percent Auto 17.3 % (18.3-44.2); Mean Corpuscular HGB Conc 33.4 g/dl (32-36); Mean Corpuscular Hemoglobin 34.6 pg (26-34); Mean Corpuscular Volume 103.4 fl (80-100); Mean Platelet Volume 8.9 fl (7.4-10.4); Monocytes Absolute Auto 1.9 K/mm3 (0.1-0.6); Monocytes Percent Auto 8.8 % (2.6-8.5); Neutrophils Absolute Auto 15.8 K/mm3 (1.3-6.7); Neutrophils Percent Auto 72.4 % (45.5-73.1); Platelet Count Result 905 k/mm3 (150-375); Red Cell Distribution Width 14.4 % (11.5-14.5); White Blood Count 21.8 K/mm3 (4.5-10.0)
[2023-09-14] MEDS: SODIUM CHLORIDE 0.9% IV 1,000 ML 999 ML IV CONT ×3 (05:11→06:42)
[2023-09-14] MEDS: PROCHLORPERAZINE EDISYLATE 10 MG/2 ML VIAL IV PUSH ×2 (05:11→07:32)
[2023-09-14 05:19] LABS: Alanine Aminotransferase 16 U/L (6-35); Albumin Level 3.8 g/dL (3.5-5.1); Alkaline Phosphatase 195 U/L (38-126); Anion Gap 17 mmol/L (4-12); Aspartate Amino Transferase 21 U/L (14-36); Bilirubin,Total 0.6 mg/dL (0.2-1.3); Blood Urea Nitrogen 22 mg/dL (7-17); Calcium 9.2 mg/dL (8.4-10.2); Carbon Dioxide 10 mmol/L (22-30); Chloride 112 mmol/L (98-107); Estimated CRCL calculation 45 ml/min; Estimated Glomerular Filt Rate 52; Glucose 113 mg/dL (65-110); Lipase 47 U/L (23-300); Potassium 3.1 mmol/L (3.4-5.0); Sodium 139 mmol/L (137-145)
[2023-09-14] MEDS: POTASSIUM CHLORIDE 20 MEQ ER TABLET 40 MEQ PO (05:31)
[2023-09-14 05:56] LABS: Influenza A QL RT-PCR Negative (Negative); Influenza B QL RT-PCR Negative (Negative); RSV RNA, RT-PCR Negative (Negative); SARS-CoV-2 RNA PCR Negative (Negative)
[2023-09-14 06:05] LABS: Platelet Estimate Increased (Adequate); Schistocytes None Seen
[2023-09-14 06:06] LABS: Large Platelets Present
--- NOTE | 2023-09-14 06:27 | ED.GENADULT ---
HPI - General Adult General Chief complaint: Shortness of Breath/Dyspnea Stated complaint: SOB, DIZZINESS Time Seen by Provider: 09/14/23 04:55 History of Present Illness HPI narrative: Patient is a 32-year-old female who presents the emergency department this evening complaining of nausea, vomiting and shortness of breath. Patient admits that she does have a history of asthma but states that it is the nausea and the vomiting that are causing her to be short of breath. Patient states that she has been dealing with this nausea since and she was seen in our facility in the past for this, however, she left because she had an anxiety attack. She is currently denying any chest pain, any abdominal pain, any urinary symptoms or flank pain, however, patient does admit that she does have a history of recurrent urinary tract infections. She denies any fevers or chills at home and currently denying any additional symptoms or concerns at this time. Related Data Home Medications Medication Instructions Recorded Confirmed albuterol 90 mcg/actuation aerosol 90 mcg inhalation PRN PRN 10/20/21 10/24/21 inhaler Shortness Of Breath [id number]-[id number]-prlpdnta 250 1 tablet PO Q4-6H PRN Migraine 10/20/21 10/24/21 mg-250 mg-65 mg tablet (Excedrin Headache Migraine) cetirizine 10 mg tablet (Zyrtec) 10 mg PO DAILY PRN Allergy Symptoms 10/20/21 10/24/21 Allergies Allergy/AdvReac Type Severity Reaction Status Date / Time metoclopramide [From Reglan] AdvReac Mild Itching Verified 09/14/23 04:56 ondansetron [From Zofran] AdvReac Mild Itching Verified 09/14/23 04:56 promethazine [From Phenergan] AdvReac Mild Itching Verified 09/14/23 04:56 Review of Systems Review of Systems: All systems are reviewed and are negative unless stated otherwise in the HPI. PMFSH Past Medical History Medical History Dehydration Gastroenteritis Intractable vomiting Leukocytosis Patient denies significant medical history Surgical History Surgical History History of mandibular surgery Hx of cystoscopy No pertinent past surgical history Family History Family History Mother Fibromyalgia Father Acute myocardial infarction Social History Social History Smoking packs per day: 1 Smoking cigarettes per day: 20.0 Years smoked: 17 Smoking pack-years: 17.00 Smoking status: Current every day smoker Tobacco type: cigarettes Alcohol intake: current Drinks per week: 1 Other substance usage details: One drink per month Living arrangements: with family Gender identity (if verbalized by the patient): Female Sexual Orientation (if Verbalized by the Patient): Straight or Heterosexual Spiritual care concerns: No Exam Narrative: General: Alert, awake, afebrile, very anxious. HEENT: PERRL, no rhinorrhea, no post nasal drip, oropharynx clear. Cardiovascular: Tachycardic with regular rhythm, no murmurs, rubs or gallops, no peripheral edema. Respiratory: Clear to auscultation bilaterally, no tachypnea, no wheezing, no rhonchi, no rubs, no respiratory distress. Abdomen: Soft, nontender, nondistended, no rebound, no guarding, no peritoneal signs. Musculoskeletal: No joint swelling or deformity, normal muscle tone. Skin: No rashes or petechia, no signs of infection. Neurological: Alert and oriented to person, place, and time. Follows all commands. No focal deficits, speech is clear and fluent. Course Vital Signs Vital signs: Vital Signs Temperature 97.9 F 09/14/23 04:42 Pulse Rate 144 H 09/14/23 04:42 Respiratory Rate 26 H 09/14/23 04:42 Pulse Oximetry 100 09/14/23 04:42 Oxygen Delivery Room Air 09/14/23 04:42 Temperature 97.9 F 09/14/23 04:42 Pulse Rate 122 H 09/14/23 07:38 Res
[2023-09-14 06:34] LABS: Lactic Acid Reflex 1.3 mmol/L (0.7-2.0)
[2023-09-14 06:44] VITALS: BP 120/78; PULSE 130; RESP 16; O2SAT 22
[2023-09-14 06:48] LABS: Appearance Urine Turbid (Clear); Bacteria Urine 4+ /hpf; Bilirubin Urine Negative (Negative); Blood Urine 3+ (Negative); Color Urine Yellow (Yellow); Glucose Urine UA Negative (Negative); Ketones Urine 1+ mg/dL (Negative); Leukocyte Esterase Ur 3+ LEU/UL (Negative); Need Manual Microscopic Reviewed; Nitrate Urine Negative (Negative); Protein Urine 3+ mg/dL (Negative); RBC Urine >100 /hpf (0-2); Specific Grav Ur 1.021 (1.001-1.035); Squamous Epithelial Cell Urine None Seen /hpf (Few); Urobilinogen Urine 0.2 mg/dL (<2.0); WBC Urine >100 /hpf (0-3); pH Urine 6.5 (5.0-9.0)
[2023-09-14 06:58] LABS: Add Urine Microscopic? YES
--- NOTE | 2023-09-14 07:16 | PC.NURSE ---
bssr given to karley rn at this time. pt resting comfortably in bed. call light within reach.
[2023-09-14 07:38] VITALS: BP 111/91; PULSE 122; RESP 18; O2SAT 99
== END 2023-09-14 07:39 | disposition left against medical advice (07) ==
PROVIDERS: Emergency Provider Emergency Medicine
DX: N12 Tubulo-interstitial nephritis, not specified as acute or chronic (principal); R11.2 Nausea with vomiting, unspecified; Z20.822 Contact with and (suspected) exposure to COVID-19
CPT/HCPCS: 36415; 71045; 80053; 81001; 82248; 83605; 83690; 85025; 87086; 87088; 87637; 93005; 96361; 96374; 96376; 99284; A9270; J0780; J7030

== ENCOUNTER 2023-12-21 23:29 | Inpatient (IN) | payer BC, SELFPAY ==
--- NOTE | ~2023-12-21 | XR_ITS ---
Portable chest x-ray Comparison: 09/14/2023 Clinical History: Shortness of breath Findings: Suggestion of minimal haziness at the left lung base. Right lung clear. Cardiomediastinal silhouette is stable. Bones and soft tissues are unremarkable. Impression: Possible subtle left lower lobe pneumonia. Reviewed, dictated and finalized at location . Impression: Possible subtle left lower lobe pneumonia.
--- NOTE | ~2023-12-21 | CT_ITS ---
Non-contrast CT scan of the Abdomen and Pelvis Clinical indication: Acute renal insufficiency Technique: 2.5 mm axial scans were obtained through the abdomen and pelvis without intravenous or or al contrast. Dose reduction technique was used on this scan by utilizing automated exposure control a nd iterative reconstruction technique. The dose-length product (DLP) was 168.15 mGy-cm. COMPARISON: 08/26/2023 Findings: Images through the lung bases reveal extensive groundglass opacity in the left lower lobe. . There is mild left hydroureteronephrosis, without left renal or left ureteral stone. Right ureteral s tent is in place, with mild to moderate right hydroureteronephrosis. There are multiple nonobstructin g right renal stones throughout the right kidney and in the right renal pelvis, measuring up to 1.7 c m in diameter. There is air within the right renal collecting system. There is diffuse hepatic steatosis. The spleen, pancreas, gallbladder, and adrenals appear normal. T here is no aortic aneurysm. There is no evidence of bowel obstruction. Images through the pelvis were performed. There is no evidence of ascites or lymphadenopathy. 5.3 x 4 .2 cm urinary bladder stone present. Small amount of air present in the urinary bladder. IUD in place . No adnexal mass evident. Impression: Extensive groundglass opacity left lower lobe, suspicious for pneumonia. Diffuse hepatic steatosis. Multiple right renal stones within the right renal pelvis about the proximal portion of the stent and in the right renal collecting system. Right ureteral stent remains in place. Mild to moderate right hydroureteronephrosis, and mild left hydroureteronephrosis. Large urinary bladder stone. Air in urinary bladder and right renal collecting system is presumably iatrogenic. Reviewed, dictated and finalized at [facility]. Impression: Extensive groundglass opacity left lower lobe, suspicious for pneumonia. Diffuse hepatic steatosis. Multiple right renal stones within the right renal pelvis about the proximal po rtion of the stent and in the right renal collecting system. Right ureteral troy nt remains in place. Mild to moderate right hydroureteronephrosis, and mild left hydroureteronephros is. Large urinary bladder stone. Air in urinary bladder and right renal collecting system is presumably iatrogen ic.
[2023-12-21 23:49] VITALS: BP 91/58; PULSE 65; RESP 15; TEMP 36.4; O2SAT 97
[2023-12-22] VITALS (15 sets, daily range): BP systolic 93–152; BP diastolic 57–131; PULSE 56–148; RESP 16–20; TEMP 36.4–37.1; O2SAT 92–100; BMI 18.9
[2023-12-22] MEDS: SODIUM CHLORIDE 0.9% IV 1,000 ML 999 ML IV CONT ×3 (03:44→16:07)
[2023-12-22 03:53] LABS: Basophils Absolute Auto 0.1 K/mm3 (0.0-0.1); Basophils Percent Auto 0.3 % (0.2-1.2); Eosinophils Absolute Auto 0.1 K/mm3 (0-0.3); Eosinophils Percent Auto 0.3 % (0-4.4); Hematocrit 25.1 % (37.0-47.0); Hemoglobin 7.9 g/dL (12.0-15.0); Immature Granulocyte Absolute 0.38 K/mm3 (0.00-0.031); Lymphocytes Percent Auto 16.3 % (18.3-44.2); Mean Corpuscular HGB Conc 31.5 g/dl (32-36); Mean Corpuscular Hemoglobin 36.6 pg (26-34); Mean Corpuscular Volume 116.2 fl (80-100); Monocytes Absolute Auto 2.2 K/mm3 (0.1-0.6); Monocytes Percent Auto 11.3 % (2.6-8.5); Neutrophils Absolute Auto 13.3 K/mm3 (1.3-6.7); Neutrophils Percent Auto 69.8 % (45.5-73.1); Nucleated Red Blood Cells Perc 0.2 % (0.0-0.2); Platelet Count Result 788 k/mm3 (150-375); Red Blood Count 2.16 M/mm3 (4.2-5.4); Red Cell Distribution Width 14.7 % (11.5-14.5)
[2023-12-22 04:02] LABS: Alanine Aminotransferase 13 U/L (6-35); Albumin Level 3.1 g/dL (3.5-5.1); Alkaline Phosphatase 301 U/L (38-126); Aspartate Amino Transferase 24 U/L (14-36); Bilirubin,Total 0.9 mg/dL (0.2-1.3); Blood Urea Nitrogen 42 mg/dL (7-17); Calcium 8.8 mg/dL (8.4-10.2); Carbon Dioxide < 5 mmol/L (22-30); Chloride 100 mmol/L (98-107); Estimated CRCL calculation 20 ml/min; Estimated Glomerular Filt Rate 21; Glucose 101 mg/dL (65-110); Sodium 130 mmol/L (137-145)
[2023-12-22 04:18] LABS: SPREG INTERNAL CONTROL Positive; Serum Qual hCG Negative
[2023-12-22 04:22] LABS: Hypochromasia 1+; Ovalocytes 1+; Platelet Estimate Increased (Adequate); Schistocytes None Seen
[2023-12-22 04:23] LABS: Add Urine Microscopic? YES; Appearance Urine Turbid (Clear); Bacteria Urine 4+ /hpf; Bilirubin Urine Negative (Negative); Blood Urine 3+ (Negative); Color Urine Dark Yellow (Yellow); Glucose Urine UA Negative (Negative); Ketones Urine Negative (Negative); Leukocyte Esterase Ur 3+ LEU/UL (Negative); Need Manual Microscopic Reviewed; Nitrate Urine Negative (Negative); Non Pathogenic Casts >20; Protein Urine 3+ mg/dL (Negative); RBC Urine >100 /hpf (0-2); Specific Grav Ur 1.019 (1.001-1.035); Squamous Epithelial Cell Urine Moderate /hpf (Few); WBC Urine >100 /hpf (0-3); pH Urine 5.5 (5.0-9.0)
[2023-12-22 05:00] LABS: Influenza A QL RT-PCR Negative (Negative); Influenza B QL RT-PCR Negative (Negative); SARS-CoV-2 RNA PCR Negative (Negative)
[2023-12-22] MEDS: POTASSIUM CHLORIDE 20 MEQ PACKET (FOR LIQUID) 40 MEQ PO (05:28)
[2023-12-22 05:57] LABS: Lactic Acid Reflex 0.8 mmol/L (0.7-2.0)
--- NOTE | 2023-12-22 06:35 | ED.GENADULT ---
HPI - General Adult General Chief complaint: Unspecified Stated complaint: SOB, N/V, kidney infection from stent, lethargic Time Seen by Provider: 12/22/23 03:19 History of Present Illness HPI narrative: Patient is 33-year-old female who presents to the emergency department this evening complaining of shortness of breath and bilateral flank pain. Patient also complaining of nausea and vomiting. Two patient has a history of a right ureteral stent that was placed back in 2021 and was supposed to be removed, however, patient has never followed up. Patient has been seen in our facility in the past twice for her flank, her hydronephrosis and her ureteral stent that was supposed to be removed. Patient was seen by 1 of our urologist back in March and signed out AMA and was seen again in August and also signed out AMA. Patient states today that she will not sign out AMA because she this taking care of because now the flank pain is preventing her from even being able to get out of bed. Denies any fevers or chills at home. No additional symptoms or concerns at this time. Related Data Home Medications Medication Instructions Recorded Confirmed albuterol 90 mcg/actuation aerosol 90 mcg inhalation PRN PRN 10/20/21 10/24/21 inhaler Shortness Of Breath klzatxt-rtrxvxvsydnan-eciuehib 250 1 tablet PO Q4-6H PRN Migraine 10/20/21 10/24/21 mg-250 mg-65 mg tablet (Excedrin Headache Migraine) cetirizine 10 mg tablet (Zyrtec) 10 mg PO DAILY PRN Allergy Symptoms 10/20/21 10/24/21 Allergies Allergy/AdvReac Type Severity Reaction Status Date / Time metoclopramide [From Reglan] AdvReac Mild Itching Verified 09/14/23 04:56 ondansetron [From Zofran] AdvReac Mild Itching Verified 09/14/23 04:56 promethazine [From Phenergan] AdvReac Mild Itching Verified 09/14/23 04:56 Review of Systems Review of Systems: All systems are reviewed and are negative unless stated otherwise in the HPI. [facility] Past Medical History Medical History Dehydration Gastroenteritis Intractable vomiting Leukocytosis Patient denies significant medical history Surgical History Surgical History History of mandibular surgery Hx of cystoscopy No pertinent past surgical history Family History Family History Mother Fibromyalgia Father Acute myocardial infarction Social History Social History Smoking packs per day: 1 Smoking cigarettes per day: 20.0 Years smoked: 17 Smoking pack-years: 17.00 Smoking status: Current every day smoker Tobacco type: cigarettes Alcohol intake: current Drinks per week: 1 Other substance usage details: One drink per month Living arrangements: with family Gender identity (if verbalized by the patient): Female Sexual Orientation (if Verbalized by the Patient): Straight or Heterosexual Spiritual care concerns: No Exam Narrative: General: Alert, awake, afebrile, in no acute distress. HEENT: PERRL, no rhinorrhea, no post nasal drip, oropharynx clear. Cardiovascular: Regular rate and rhythm, no murmurs, rubs or gallops, no peripheral edema. Respiratory: Clear to auscultation bilaterally, no tachypnea, no wheezing, no rhonchi, no rubs, no respiratory distress. Abdomen: Soft, nontender, nondistended, no rebound, no guarding, no peritoneal signs. Musculoskeletal: No joint swelling or deformity, normal muscle tone. Skin: No rashes or petechia, no signs of infection. Neurological: Alert and oriented to person, place, and time. Follows all commands. No focal deficits, speech is clear and fluent. Course Vital Signs Vital signs: Vital Signs Temperature 97.6 F 12/21/23 23:49 Pulse Rate 65 12/21/23 23:49 Respiratory Rate 15 12/21/23 23:49 Blood Pressure 91/58 L 12/21/23 23:49 Puls
[2023-12-22] MEDS: AZITHROMYCIN 500 MG/NS 250 ML 500 MG/250 ML BAG 250 MG IVPB (06:39)
[2023-12-22] MEDS: KETOROLAC 15 MG/ML VIAL (*BKC) IV PUSH (07:23)
[2023-12-22] MEDS: diphenhydrAMINE HCl INJ 50 MG/ML VIAL IV PUSH (07:23)
[2023-12-22] MEDS: PROCHLORPERAZINE EDISYLATE 10 MG/2 ML VIAL IV PUSH (07:24)
[2023-12-22] MEDS: diphenhydrAMINE HCl INJ 50 MG/ML VIAL 25 MG IV PUSH (07:45)
[2023-12-22] MEDS: SODIUM CHLORIDE 0.9% IV 1,000 ML 100 ML IV CONT (08:01)
--- NOTE | 2023-12-22 09:47 | WPDURCON ---
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 She will need right nephrostomy tube but unable to complete at this facility. (Discussed with IR, needs fluoroscopy and we do not have appropriate imaging modality at this facility). Discussed with hospitalist and will initiate transfer to tertiary care facility. (2) Bladder stone: Code(s): N21.0 - Calculus in bladder Status: Acute Assessment and Plan: Large bladder stone which will likely require open cystolithotomy which would be better addressed at tertiary care facility (3) Obstruction of right ureteropelvic junction due to stone: Code(s): N20.1 - Calculus of ureter Status: Acute Assessment and Plan: As above, has large right staghorn stones that will need to be addressed at outside facility (4) Acute kidney injury: Code(s): N17.9 - Acute kidney failure, unspecified Status: Acute Assessment and Plan: Creatinine elevated to 2.6 on arrival, likely related to above issues. Will require nephrostomy tube placement. Continue to monitor renal function. Initiate transfer as above. (5) Abnormal urinalysis: Code(s): R82.90 - Unspecified abnormal findings in urine Status: Acute Assessment and Plan: UA grossly abnormal, concerning for UTI and patient is symptomatic. Continue IV ceftriaxone while awaiting urine culture results (6) Medically noncompliant: Code(s): Z91.199 - Patient's noncompliance with other medical treatment and regimen due to unspecified reason Status: Acute Assessment and Plan: Care has been complicated by patient's lack of follow-up and history of signing out against medical advice. Urology Consult Note HPI Date Seen: 12/22/23 Requesting Physician: Laron Hodge MD Primary Care Provider: [facility] PHYSICIAN Consult Narrative Narrative: Phylicia Lewis is a 33 year old female with extensive urologic history who has been entirely noncompliant with follow-up. She is currently admitted for shortness of breath and is being seen in consultation for hydronephrosis. She is a rather poor historian. She has had several recent ER visits due to complaints of nausea, vomiting, and flank pain, though has left against medical advice on multiple occasions. Today, she presented to the ER with bilateral flank pain, nausea, vomiting, and shortness of breath. On arrival, BP was little and she was tachycardic. She remains afebrile. WBC markedly elevated at 19.0, hemoglobin low at 7.9, noted to have multiple electrolyte abnormalities, creatinine elevated at 2.6, lactic acid within normal limits at 0.8, UA abnormal with dark yellow, turbid urine, 3+ leukocytes, >100 WBC and RBC. Urine culture is pending at this time. CT of the abdomen/pelvis was completed which demonstrates mild left hydroureteronephrosis without evidence of renal or ureteral stone, right ureteral stent in place (has been present since 09/2021, she has not followed up for definitive management), with [id number] right hydroureteronephrosis and multiple nonobstructing right renal stones throughout the right kidney and renal pelvis measuring up to 1.7 cm, as well as air within the right renal collecting system and a very large bladder stone. At the time of my evaluation, the patient is not able to provide much meaningful history. She states that she has not followed up with any urologist due to transportation issues. She was last seen by Dr. Freed in 03/2023 at which time she was educated extensively about need for follow-up at tertiary care center for treatment right staghorn stones, large bladder stones, and likely right nephrostomy tube placement. The patient patrica
--- NOTE | 2023-12-22 09:53 | ADMGEN ---
This patient, Phylicia Lewis, was admitted to [facility] S[facility] 3 IN ED, Room 307-02. Patient/family oriented to hospital policies and general routines including ID bracelet, bed and alarms, visiting hours, pain management, procedures, bathroom and other care routines, personal items, smoking policy, room service/diet, and visiting hours. Information on how to activate the Rapid Response Team has been discussed. Patient/Family are encouraged to report perceived risks to care and to ask questions if they do not understand what they are told or what they should do.
--- NOTE | 2023-12-22 10:10 | PC.NURSE ---
This patient, Phylicia Lewis, was admitted to [facility] Surg Room 307-02. Patient/family oriented to hospital policies and general routines including ID bracelet, bed and alarms, visiting hours, pain management, procedures, bathroom and other care routines, personal items, smoking policy, room service/diet, and visiting hours. Information on how to activate the Rapid Response Team has been discussed. Patient/Family are encouraged to report perceived risks to care and to ask questions if they do not understand what they are told or what they should do.
--- NOTE | 2023-12-22 12:12 | PM.IMHP ---
H&P: HPI History of Present Illness Date/Time: 12/22/23 12:12 Chief Complaint: Shortness of Breath, Flank Pain Narrative: 33 y/o F presents here with shortness of breath and bilateral flank pain with PMH of asthma, kidney stones, severe GERD, irritable bowel, stent placement in 2021, sciatica, anxiety/ depression, bipolar, ODD, and postop nausea/vomiting. The patient presents here with shortness of breath, bilateral flank pain, nausea, and vomiting from home. Patient reports the bilateral flank pain has been ongoing For quite some time, reports that it started 2 months post-stent placement in 2021. She describes the pain as sharp, nonradiating, constant, no aggravating factors, and alleviated partially by large dose Tylenol and/or Ibuprofen. Also developed shortness of breath, fatigue, and dry cough approximately 1.5 months ago. Accompanied by body aches. Denying fever or chills. Endorses nausea and vomiting beginning in June and has been sick every since , unable to elaborate further. She has has a extensive urological history. Has been seen in the ED on 04/20/2023, 08/26/2023, 09/14/2023 for similar complaints and was offered admission but ultimately left AMA. Patient is difficult historian. Initial VS at presentation: 97.6? F, HR 65, RR 15, 91/58, and 97% on RA. ED workup showed: WBC 19.0, hemoglobin 7.9, sodium 130, potassium 3.0, creatinine 2.6 and GFR 21 (previously 1.2 and GFR 52), and UA consistent with UTI. Viral PCR negative. CT of the abdomen/pelvis showed extensive ground-glass opacities in left lower lobe suspicious for pneumonia, diffuse hepatic steatosis, multiple right renal stones within the right renal pelvis, right ureteral stent remains in place, mild to moderate right hydronephrosis, mild left hydro ureteral nephrosis, large urinary bladder stone, air in urinary bladder and right renal collecting system presumably iatrogenic. CXR concerning for possible subtle left lower lobe pneumonia. Review of Systems Review of Systems: All systems reviewed & are unremarkable except as noted in HPI and below PMFSH Past Medical History Medical History Acute kidney injury Anxiety and depression Asthma Bipolar disorder Bladder stone Gastroenteritis GERD (gastroesophageal reflux disease) Intractable vomiting Irritable bowel Migraine Postoperative nausea and vomiting Presence of Mirena IUD Sciatica Shingles Smoker Surgical History Surgical History History of mandibular surgery 2 plates in jaw Hx of cystoscopy 2015 and 10/17/2021 with stent placement Family History Family History Mother Fibromyalgia Father Acute myocardial infarction Social History Social History Smoking packs per day: 1.5 Smoking cigarettes per day: 30.0 Years smoked: 25 Smoking pack-years: 37.50 Smoking status: Current every day smoker Tobacco type: cigarettes Second hand tobacco smoke exposure: Yes Alcohol intake: former Drinks per week: 1 Substance use: former Substance use type: marijuana Other substance usage details: One drink per month Last use: 04/26/2008 Do You Feel Safe in your Home?: Yes Lack of Transportation: No Lack of Food: Never True Current Housing: I Have Housing Concerned About Future Housing: No Difficulty Paying Gas/Electric Bills: YES Difficulty Paying for Meds: YES Currently Unemployed: No Education: High School Diploma/GED Difficulty w/ Childcare or Family Care: YES Living arrangements: with family Gender identity (if verbalized by the patient): Female Sexual Orientation (if Verbalized by the Patient): Straight or Heterosexual Spiritual care concerns: No Meds Home Medications and Allergies Home Medications Medication Instructions Recorded Confirmed Type albuterol 90 mcg/actua
[2023-12-22] MEDS: MORPHINE SULFATE (*CRX) 2 MG/ML INJ IV PUSH (12:59)
[2023-12-22 15:41] LABS: Blood Urea Nitrogen 28 mg/dL (7-17); Calcium 7.4 mg/dL (8.4-10.2); Carbon Dioxide < 5 mmol/L (22-30); Chloride 113 mmol/L (98-107); Estimated CRCL calculation 29 ml/min; Estimated Glomerular Filt Rate 34; Glucose 79 mg/dL (65-110); Potassium 3.1 mmol/L (3.4-5.0); Sodium 137 mmol/L (137-145)
[2023-12-22] MEDS: POTASSIUM CHLORIDE INJ 40 MEQ in SODIUM CHLORIDE 0.9% IV 500 ML 130 MEQ IVPB (16:12)
[2023-12-22 17:04] LABS: Iron 27 ug/dL (37-170)
[2023-12-22 17:07] LABS: CRP 15.2 mg/dL (<1.0)
[2023-12-22 17:13] LABS: Percent Iron Saturation 26 % (20-50)
[2023-12-22] MEDS: POTASSIUM CHLORIDE 20 MEQ ER TABLET 40 MEQ PO (17:19)
[2023-12-22 17:28] LABS: Amphetamine Screen Urine Negative (Negative); Barbiturate Screen Urine Negative (Negative); Benzodiazepines Screen Urine Negative (Negative); Cannabinoid Screen Urine Negative (Negative); Cocaine Screen Urine Negative (Negative); Methadone Screen Urine Negative (Negative); Opiate Screen Urine Negative (Negative); Phencyclidine Screen Urine Negative (Negative)
[2023-12-22 18:36] LABS: Folic Acid 5.8 ng/mL (2.76->20); Vitamin B12 > 1000.0 pg/mL (239-931)
[2023-12-23] VITALS (11 sets, daily range): BP systolic 90–113; BP diastolic 57–65; PULSE 102–122; RESP 16–34; TEMP 36.4–36.9; O2SAT 99–100; BMI 17.9
[2023-12-23] MEDS: MEROPENEM 1 GM/NS 100 ML 1 GM/100 ML BAG IVPB (00:50)
[2023-12-23] MEDS: BENZONATATE 100 MG CAPSULE PO (00:51)
[2023-12-23 06:40] LABS: Basophils Absolute Auto 0.1 K/mm3 (0.0-0.1); Basophils Percent Auto 0.2 % (0.2-1.2); Hematocrit 23.5 % (37.0-47.0); Immature Granulocyte Absolute 0.58 K/mm3 (0.00-0.031); Immature Granulocyte Percent A 2.6 % (0-0.5); Lymphocytes Percent Auto 8.8 % (18.3-44.2); Mean Corpuscular HGB Conc 28.9 g/dl (32-36); Mean Corpuscular Volume 124.3 fl (80-100); Monocytes Percent Auto 4.5 % (2.6-8.5); Neutrophils Percent Auto 83.9 % (45.5-73.1); Nucleated Red Blood Cells Perc 0.1 % (0.0-0.2); Platelet Count Result 689 k/mm3 (150-375); Red Blood Count 1.89 M/mm3 (4.2-5.4); Red Cell Distribution Width 15.2 % (11.5-14.5); White Blood Count 22.7 K/mm3 (4.5-10.0)
[2023-12-23 07:01] LABS: Alanine Aminotransferase 12 U/L (6-35); Albumin Level 2.4 g/dL (3.5-5.1); Alkaline Phosphatase 239 U/L (38-126); Aspartate Amino Transferase 21 U/L (14-36); Bilirubin,Total 0.7 mg/dL (0.2-1.3); Blood Urea Nitrogen 16 mg/dL (7-17); Calcium 7.9 mg/dL (8.4-10.2); Carbon Dioxide < 5 mmol/L (22-30); Chloride 116 mmol/L (98-107); Estimated CRCL calculation 37 ml/min; Estimated Glomerular Filt Rate 47; Glucose 82 mg/dL (65-110); Potassium 3.8 mmol/L (3.4-5.0); Sodium 138 mmol/L (137-145)
[2023-12-23 07:37] LABS: Hemoglobin 6.8 g/dL (12.0-15.0)
[2023-12-23 07:40] LABS: Anisocytosis 2+; Platelet Estimate Increased (Adequate); Schistocytes None Seen
[2023-12-23 07:42] LABS: Hypochromasia 2+
--- NOTE | 2023-12-23 09:52 | WPDUROPN2 ---
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 She will need right nephrostomy tube but unable to complete at this facility. (Discussed with IR, needs fluoroscopy and we do not have appropriate imaging modality at this facility). She has been accepted for transfer to [facility]. Awaiting bed placement (2) Bladder stone: Code(s): N21.0 - Calculus in bladder Status: Acute Assessment and Plan: Large bladder stone which will likely require open cystolithotomy which can be addressed at tertiary care facility (3) Obstruction of right ureteropelvic junction due to stone: Code(s): N20.1 - Calculus of ureter Status: Acute Assessment and Plan: As above, has large right staghorn stones that will need to be addressed at outside facility (4) Acute kidney injury: Code(s): N17.9 - Acute kidney failure, unspecified Status: Acute Assessment and Plan: Creatinine elevated to 2.6 on arrival, likely related to above issues. Will require nephrostomy tube placement. Continue to monitor renal function, improved to 1.3 today. Awaiting transfer as above (5) Abnormal urinalysis: Code(s): R82.90 - Unspecified abnormal findings in urine Status: Acute Assessment and Plan: UA grossly abnormal, concerning for UTI and patient is symptomatic. Continue IV meropenem while awaiting urine culture results; pending at this time. Noted to have Gram-negative bacilli in 2/2 blood cultures (6) Medically noncompliant: Code(s): Z91.199 - Patient's noncompliance with other medical treatment and regimen due to unspecified reason Status: Acute Assessment and Plan: Care has been complicated by patient's lack of follow-up and history of signing out against medical advice. Subjective Subjective Date/Time Seen: 12/23/23 09:52 Interval history: Feeling poorly today. Reports that her flank pain is unchanged. Denies dysuria or hematuria. Still has nausea but no vomiting. Tolerated diet yesterday without difficulty. NPO today pending possible transfer and procedure. She is tearful today, wants to go home because she misses her family. Aware of importance transfer and need to address her many urologic issues as an inpatient Review of Systems Review of Systems: All systems reviewed & are unremarkable except as noted in HPI and below Exam Narrative: General: Thin, frail, chronically ill-appearing, awake, alert, comfortable, no acute distress HEENT: Normocephalic, atraumatic, sclerae anicteric Respiratory: Normal respiratory effort, no accessory muscle use Abdomen: Nondistended, soft, nontender Skin: Normal coloration, warm and dry Neurologic: No focal neuro deficits noted Psychiatric: Appropriate mood and affect, judgment and insight intact Objective Data Vital Signs Vital Signs: Vital Signs - 24 hr 12/22/23 10:33 12/22/23 10:37 12/22/23 12:00 Temperature 97.5 F L Pulse Rate 56 L 120 H Respiratory Rate 16 Blood Pressure 100/57 L Pulse Oximetry 96 96 Oxygen Delivery Room Air 12/22/23 13:07 12/22/23 14:00 12/22/23 16:00 Temperature 98.8 F Pulse Rate 148 H 143 H Respiratory Rate 16 Blood Pressure 152/131 H Pulse Oximetry 99 100 Oxygen Delivery Room Air 12/22/23 18:00 12/22/23 20:17 12/22/23 20:00 Temperature 98.1 F Pulse Rate 119 H Respiratory Rate 18 Blood Pressure 108/67 115/70 Pulse Oximetry 100 Oxygen Delivery Room Air 12/22/23 20:00 12/23/23 00:00 12/23/23 00:32 Temperature 97.6 F Pulse Rate 118 H 114 H 116 H Respiratory Rate 16 Blood Pressure 107/65 Pulse Oximetry 99 Oxygen Delivery 12/23/23 04:00 12/22/23 19:37
[2023-12-23] MEDS: PANTOPRAZOLE SODIUM IV 40 MG VIAL IV PUSH (10:10)
[2023-12-23] MEDS: SODIUM CHLORIDE 0.9% IV 250 ML 30 ML IV CONT (12:27)
--- NOTE | 2023-12-23 12:46 | PM.IMPN ---
Progress Note: A&P Assessment and Plan (1) Sepsis: Code(s): A41.9 - Sepsis, unspecified organism Status: Acute Assessment and Plan: Sepsis Tachycardia, Leukocytosis, UTI, bacteremia IV fluid Meropenem IV empiric IV antibiotic therapy Monitor lactic acid levels q6hr. Repeat CBC, CMP. Two sets of blood cultures pending urine cultures. Pending- C-reactive proteins procalcitonin level. PTT and PT, INR. neuro status checks TTE if indicated. Chest x-ray rule out pneumonia. Monitor albumin, monitoring of mental status. Steroid suggested if septic shock, continue positive fluid resuscitation and vasopressors if indicated. glucose monitoring and control (2) Hydroureteronephrosis: Code(s): N13.30 - Unspecified hydronephrosis Status: Chronic Assessment and Plan: - CT abd/pelvis: Extensive ground glass opacity left lower lobe, suspicious for pneumonia. Diffuse hepatic steatosis. Multiple right renal stones within the right renal pelvis about the proximal portion of the stent and in the right renal collecting system. Right ureteral stent remains in place. Mild to moderate right hydroureteronephrosis, and mild left hydroureteronephrosis. Large urinary bladder stone. Air in urinary bladder and right renal collecting system is presumably iatrogenic. 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 will likely require a right nephrostomy tube, will need transfer as this facility does not have those specific capabilities per the IR team (no fluoroscopy available) may benefit from left ureteral stent - transfer initiated to [facility] system per patient preference, last preference is [facility] (3) Bladder stone: Code(s): N21.0 - Calculus in bladder Status: Acute Assessment and Plan: - CT showing large bladder stone - Urology consulted, Mina SOUSA provided the following recs: transfer to tertiary care center for possible open cystolithotomy - transfer initiated to [facility] system (4) Obstruction of right ureteropelvic junction due to stone: Code(s): N20.1 - Calculus of ureter Status: Acute Assessment and Plan: - CT showing large right staghorn stones that will require tertariary care per Urology - transfer initiated to [facility] system (5) Anemia: Code(s): D64.9 - Anemia, unspecified Status: Acute (6) Acute kidney injury: Code(s): N17.9 - Acute kidney failure, unspecified Status: Acute Assessment and Plan: - creatinine2.6 and GFR 21, previously was 1.2 and GFR 52 on 09/14/2023. - since 04/20/2023 creatinine has been 1.4, 1.1, 1.2 and today is 2.6 - since 04/20/2023 GFR has been 43, 57, 52, and today is 21 - suspect worsening kidney function related to stones and recurrent infections, started on antibiotics and IV fluids. Urology consulted, patient requiring tertiary care. - trend renal function - trend electrolytes, correct as needed (7) UTI (urinary tract infection): Qualifiers: Hematuria presence: without hematuria Urinary tract infection type: acute cystitis Qualified Code(s): N30.00 - Acute cystitis without hematuria Code(s): N39.0 - Urinary tract infection, site not specified Status: Acute Assessment and Plan: - UA:Turbid, 3+ protein, 3+ blood, 3+ leuks, greater than 100 RBC and WBC, moderate epithelial cells, 4+ bacteria, greater than 20 casts - UC pending - previous micro reviewed, patient had positive urine culture on 08/26/2023 which showed coag-negative staph (not saprophyti) that may represent colonies from external/internal genitalia and no sensitivities provided - started on Ceftriaxone on 12/21 at 5:00 a.m. (8) Pneumonia: Qualifiers: Laterality: left Lung location: lower lobe of lung Pneumonia type: due to unspeci
--- NOTE | 2023-12-23 13:02 | PM.TDS ---
Transfer Discharge Sum: Prov Provider Date of admission: 12/22/23 07:32 Primary care physician: CONCRETE TECHNICIAN PHYSICIAN Admitting clinician: Laron Hodge MD Attending physician on admission: Manan Garcia Consults: 12/22/23 07:34 Consult to Physician Routine Comment: Consulting Provider: Arash Ayon Reason for consultation: Acute on chronic bilateral hydroureteronephrosis, bladder stone, UTI Has provider been notified: Yes Attending physician on discharge: Manan Garcia Discharging clinician: Shaista Ames Anticipated date of transfer: 12/16/23 Receiving physician/facility: [facility]/Dr Pooja CRUZ DS: Admitting Diagnosis Discharge Date 12/23/2023 Admitting Diagnosis Hydronephrosis with retained stent/sepsis DS: Discharge Diagnosis Discharge Diagnosis (1) Sepsis: Code(s): A41.9 - Sepsis, unspecified organism Status: Acute Assessment and Plan: Sepsis Tachycardia, Leukocytosis, UTI, bacteremia IV fluid Meropenem IV empiric IV antibiotic therapy Monitor lactic acid levels q6hr. Repeat CBC, CMP. Two sets of blood cultures negative bacilli C-reactive proteins procalcitonin level. PTT and PT, INR. (2) Hydroureteronephrosis: Code(s): N13.30 - Unspecified hydronephrosis Status: Chronic Assessment and Plan: - CT abd/pelvis: Extensive ground glass opacity left lower lobe, suspicious for pneumonia. Diffuse hepatic steatosis. Multiple right renal stones within the right renal pelvis about the proximal portion of the stent and in the right renal collecting system. Right ureteral stent remains in place. Mild to moderate right hydroureteronephrosis, and mild left hydroureteronephrosis. Large urinary bladder stone. Air in urinary bladder and right renal collecting system is presumably iatrogenic. 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 will likely require a right nephrostomy tube, will need transfer as this facility does not have those specific capabilities per the IR team (no fluoroscopy available) may benefit from left ureteral stent - transfer initiated to [facility] system per patient preference, last preference is [facility] (3) Bladder stone: Code(s): N21.0 - Calculus in bladder Status: Acute Assessment and Plan: - CT showing large bladder stone - Urology consulted, Mina SOUSA provided the following recs: transfer to tertiary care center for possible open cystolithotomy - transfer initiated to [facility] system (4) Obstruction of right ureteropelvic junction due to stone: Code(s): N20.1 - Calculus of ureter Status: Acute Assessment and Plan: - CT showing large right staghorn stones that will require tertariary care per Urology - transfer initiated to [facility] system (5) Anemia: Code(s): D64.9 - Anemia, unspecified Status: Acute (6) Acute kidney injury: Code(s): N17.9 - Acute kidney failure, unspecified Status: Acute Assessment and Plan: - creatinine2.6 and GFR 21, previously was 1.2 and GFR 52 on 09/14/2023. - since 04/20/2023 creatinine has been 1.4, 1.1, 1.2 and today is 2.6 - since 04/20/2023 GFR has been 43, 57, 52, and today is 21 - suspect worsening kidney function related to stones and recurrent infections, started on antibiotics and IV fluids. Urology consulted, patient requiring tertiary care. - trend renal function - trend electrolytes, correct as needed (7) UTI (urinary tract infection): Qualifiers: Hematuria presence: without hematuria Urinary tract infection type: acute cystitis Qualified Code(s): N30.00 - Acute cystitis without hematuria Code(s): N39.0 - Urinary tract infection, site not specified Status: Acute Assessment and Plan: - UA:Turbid, 3+ protein, 3+
--- NOTE | 2023-12-23 13:11 | WPDCDIQUERY2 ---
CDI Query Clarification Request BMI: 17.9 Nutritional Diagnostic Statement: Please refer to the comprehensive nutrition assessment for further information. If you agree with diagnosis of Severe protein calorie malnutrition related to inadequate energy intake as evidenced by significant weight loss of -21% x 3 months, pt report of poor po intake greater than 1 month, and NFPE findings for severe subcutaneous fat loss (cheeks) and severe muscle wasting (adventism, clavicle). Please specify severity if known: Mild Moderate Severe Other/Unknown <Jen Jorge RN - Last Filed: 12/23/23 13:11> Clarified Diagnosis Clarified Diagnosis: Severe protein calorie malnutrition related to inadequate energy intake as evidenced by significant weight loss of -21% x 3 months, pt report of poor po intake greater than 1 month, and NFPE findings for severe subcutaneous fat loss (cheeks) and severe muscle wasting (adventism, clavicle) <Shaista Ames APRN - Last Filed: 12/23/23 14:36>
--- NOTE | 2023-12-23 17:03 | PC.NURSE ---
Pt is A&O4 female who participated and contributed in plan of care. Pt had critical hgb of 6.8 and 1 unit of blood was ordered. Pt tolerated blood well. Pt was transferred to [facility] for further treatment. Report was called to Juan GUY at 1320. Pt was transferred via [facility] ALS truck. Pt went with 20g in Left AC. Pt was monitored for any changes in status while here.
== END 2023-12-23 15:25 | disposition short-term general hospital (02) | DRG 720 ==
LOC: ANHED 12-22 07:51 → ANH3MEDSUR 12-22 08:12
PROVIDERS: Student in an Organized Health Care Education/Training Program; Admitting Provider General Practice; Emergency Provider Emergency Medicine; Visit Provider Nurse Practitioner Family
DX: A41.9 Sepsis, unspecified organism (principal); N13.6 Pyonephrosis; N17.9 Acute kidney failure, unspecified; J18.9 Pneumonia, unspecified organism; N21.0 Calculus in bladder; D64.9 Anemia, unspecified; E43 Unspecified severe protein-calorie malnutrition; K21.9 Gastro-esophageal reflux disease without esophagitis; F41.8 Other specified anxiety disorders; F17.210 Nicotine dependence, cigarettes, uncomplicated; E87.6 Hypokalemia; Z68.1 Body mass index [BMI] 19.9 or less, adult; Z91.199 Patient's noncompliance with other medical treatment and regimen due to unspecified reason; Z20.822 Contact with and (suspected) exposure to COVID-19
CPT/HCPCS: 36415; 36430; 71045; 74176; 80048; 80053; 80307; 81001; 82607; 82728; 82746; 83540; 83550; 83605; 84443; 84703; 85025; 86140; 86850; 86900; 86901; 86923; 87040; 87077; 87086; 87088; 87186; 87636; 96361; 96365; 96375; 99285; A9270; J0456; J0696; J0780; J1200; J1885; J2185; J2270; J2470; J3480; J7030; J7040; J7050; P9016

== ENCOUNTER 2025-01-09 08:18 | Emergency (ER) | payer BC, SELFPAY ==
--- OUTSIDE RECORDS SUMMARY | 2016-06-16 08:15 | XMS_ITS | Continuity of Care Document ---
Author Organization [email or web address] Address [address] [place] [address] Phone Care Team Providers Care Thermostat Maker Name Role Phone Kam Cohen MD Unavailable Unavailable Allergies, Adverse Reactions, Alerts Substance Reaction Status Criticality ONDANSETRON HCL Active No Informati on PROMETHAZINE HCL Active No Informat ion METOCLOPRAMIDE HCL Active No Inform ation Medications Medication Instructions Dosage Effective Dates (start - stop) Status Comments Flyony Gummies chewable tablet 2 daily - Active ranitidine 150 mg capsule take 1 capsule by oral route every day - uses prn - Active diphenhydramine 25 mg capsule takes prn dermatitis - Active Tylenol Extra Strength 500 mg tablet take 2 Tablet by oral route 4 times every day as needed 1000 MG - Active Tri-Sprintec (28) 0.18 mg(7)/0.215 mg(7)/0.25 mg(7)-35 mcg tablet take 1 tablet by oral route every day 1.00 tablet - No Longer Active Procedures Procedure Date OB Care Chlamydia Trachomatis N.Gonorrhoeae Dna Amp Probe Cytopathology With Screening Office/Outpatient Vist Est 3 Potassium Venipuncture Cysto Urethroscopy W/Removal FB, Stent; Simple Office/Outpatient Vist Est 3 Initial Hospital Care Level 2 7 Vaginal Delivery With 2016 Initial Hospital Care Level 2 7 CYSTOURETHROSCOPY & STENT Subsequent Hospital Care Level 2 2016 CYSTOURETHROSCOPY & DI Initial Hospital Care Level 2 7 Subsequent Hospital Care Level 2 2016 Results Test Name Date and Time Measure Units Reference Range Abnormal Flag Status Comments Panel Description: Chlamydia/GC (On PL Pap Smear ) Final Report scanned in. Final Report scanned in. Document Panel Description: Pap Thin Prep (PL) Final Report scanned in. Final Report scanned in. Document Advance Directives Directive Yes / No Effective Date File Name No Information Encounters Encounter Description Practice Location Reason(s) For Visit Diagnoses Date Provider Providers Copied on Encounter [facility] [address] , [place], [place], [id number] , [place] tel:[phone] [facility] check (chief complaint) Encounter for routine follow-upEncntr screen for infections w sexl mode of transmiss 7 Noel Humphrey. [address] , [place], [place], [id number] , [place]. tel:[phone] Referring Provider: Kam Cohen, [address] [place] [address], [address] . tel:[phone] Office/Outpa tient Vist Est 3 [facility] [address] [facility], [place], [id number] , [place] tel:[phone] [facility] hypokalemia (chief complaint)ki dney stones (chief complaint) HypokalemiaNephroli thiasisHyperkalemia 7 Patricia Durham. [address] , [place], [place], [id number] , [place]. tel:[phone] Referring Provider: Herminio Castellano, [address] , [place], [address] . tel:[phone] Office/Outpa tient Vist Est 3 [facility] [address] , [place], [place], [id number] , [place] tel:[phone] [facility] Kidney stones (chief complaint) Calculus Of Kidney 7 Santy Willett. [address] [place] [address], [id number] , [place]. tel:[phone] Referring Provider: Bernnon Cook, [address] [place] [address], [address] . tel:[phone] Initial Hospital Care Level 2 [facility] [address] , [place], [place], [id number] , [place] tel:[phone] [facility] No Information 7 Noel Humphrey. [address] [place], [place], [id number] , [place]. tel:[phone] Referring Provider: Kam Cohen, [address] [place] [address], [address] . tel:[phone] Family History Family Member Type Diagnosis Age At Onset No Information Payers Payer name Insurance type Covered constitution party ID Authoriza tion(s) No Information Social History Type Description Quantity Date Captured Comments Alcohol Use Details Unknown Caffeine Use Details Unknown Tobacco Use Status Smoking Status Light tobacco smoker Sex Female Vital Signs Date / Time: Height Weight BMI Pulse Rate Blood Pressure Temperature Respiratory Rate Body Surface Area Head Circumference Head Circ. Percentile Wt./Ronal. Percentile BMI percentile Pulse Ox Inhaled Ox 1:32 PM 62.00 in 57.153 kg (126.00 lbs) 23.0 5 kg/m eter (2) 124/80 mm[Hg] Chief Complaint And Reason For Visit From encounter dated '06/16/2016 13:15'. check (chief complaint). Description: The patient has had vaginal bleeding. The patient has no breast problems, urinary problems or bowel problems. She has no episiotomy/laceration pain. Additional Information: Still has vag bleeding, slowing since yesterday. Changes pad about every 2 hours - not saturated - estimates would use one pad/day now. Not . Denies depression. States does have her normal bipolar depression. Wants to have mirena IUD or OCP. Last pap about 6 years ago. Reason For Referral Reason For Referral No Information Plan Of Treatment Date Type Action Status Goal Depression screening. Due on due Goal Td vaccine. Due on 17 due Goal PAP. Due on due Goal Tdap. Due on due Goal HPV (). Due on due Goal Influenza vaccine. Due on due Goal Tobacco cessation counseling completed Goal Depression screening. Due on due Goal PAP. Due on due Goal Tdap. Due on due Goal Influenza vaccine. Due on due Goal Td vaccine. Due on due Goal HPV (). Due on due Goal Tdap. Due on due Goal Influenza vaccine. Due on due Goal Td vaccine. Due on due Goal Depression screening. Due on due Goal PAP. Due on due Goal HPV (). Due on due History Of Present Illness Encounter Date Complaint History Of Prese nt Illness check The patient has had vaginal bleeding. The patient has no breast problems, urinary problems or bowel problems. She has no episiotomy/laceration pain. Additional Information: Still has vag bleeding, slowing since yesterday. Changes pad about every 2 hours - not saturated - estimates would use one pad/day now. Not . Denies depression. States does have her normal" bipolar depression. Wants to have mirena IUD or OCP. Last pap about 6 years ago. kidney stones Prior stone type includes unknown. Pertinent negatives include chills, diarrhea, dysuria, fever, hematuria, nausea, urinary frequency and vomiting. Additional information: She has also had difficulty with ureteral stones and has had a ureteral stent placed in the past. She had a stent replacement done while in the hospital and had the new stent removed this morning. hypokalemia The symptoms are reported as being moderate. She states the symptoms are chronic. She was recently hospitalized for active with delivery. During that time she was found to have a serum potassium that was very low at 2.7. She was given aggressive dosing of intravenous potassium and increased initially up to 3.6. POTASSIUM was held at that point and her potassium decreased down to 3.2 and at that time a urinary potassium was obtained which was 16.5 mmol per liter. She was discharged on 20 mEq of oral potassium daily however she states she could not afford this and has not been taking this since her discharge. She denies any symptoms. Kidney stones Onset was gradua l. Severity level is moderate. It occurs Rarely. The problem is improving. Location of pain is right flank. Prior stone type of unknown. Pertinent history includes stent placement. There are no associated symptoms. Additional information: 10 days post and stent exchange. Here for cysto and stent removal. She is feeling pretty well.. Kidney stones (comments) She had an encrusted stent removed abd a new stent place. The first stent was placed in November at another facility while she was and then she says she passed 4 stones. I saw her after the delivery of her baby abd removed an encrusted obstructed stent causing Rt hydro, but ureterorenoscopy and CT scan revealed no residual stones. He ureter pauline very swollen so a new stent placed and comes in today to remove the stent. Functional Status Date Functional Assessmen t No Information Instructions Date Instruction Additional Infor nani Start OCP's today. Related to En counter for routine follow-up Will notify of pap r esults when available. Related to Encounter for routine follow-up Return in 1 year. Related to Enc ounter for routine follow-up 1. I agree with incr easing dietary water intake for a goal of 2.5-3 L of water per day.2. Low sodium diet3. I would recommend obtaining a 24 hour urinalysis for stone risk in approximately 3 months. At the follow-up for that visit I would recommend obtaining a renal panel, PTH, and a uric acid. Related to Nephrolithiasis 1. Based on her eval uation I suspect that she had poor oral intake of potassium with her in-hospital urine being suggestive of no evidence of renal potassium loss.2. As her potassium levels are normal without potassium supplementation and I would not recommend starting potassium supplements at this time. Related to Hypokalemia Recommend that she i ncrease her intake of fruits and fluids. Recheck her as needed. Related to Calculus Of Kidney See Plan Related to Hypok alemia Assessments Type Assessment Date assessment Encounter for routine follow-up Patient Care Teams Name Effective Dates (start - stop) Status Members No Information
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
[2025-01-09 08:18] VITALS: BP 113/85; PULSE 97; RESP 16; TEMP 36.7; O2SAT 99
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
[2025-01-09] MEDS: ACETAMINOPHEN 500 MG TABLET 1000 MG PO (09:37)
--- OUTSIDE RECORDS SUMMARY | 2025-01-09 10:22 | XMS_ITS | Encounter Summary ---
Author Organization [facility] Address [address] [facility] [facility] [address] [place] [address] Care Team Providers Care Sort Line Name Role Phone Fabrizio Price BLOW MOLDING MACHINE TENDER-SUPERVISOR FILLING AND PACKING Unavailable [phone] None, Physician Primary Care Provider Melissa Sheffield RN Unavailable [phone] Reason for Visit * Reason Onset Date Comments Contraceptive management 10/24/2018 Encounter Details Date Type Department Care Team (Late st Contact Info) Description 10/24/2018 Telephone [facility] [address] [place] [address] [place] [address] [place] [address] Contraceptive management Social History Tobacco Use Types Packs/Day Years Used Date Smoking Tobacco: Every Day Cigarettes 1 15 Smokeless Tobacco: Never Alcohol Use Standard Drinks/Week Comments Yes 0 (1 standard drink = 0.6 oz pur e alcohol) rare Comments No Sex and Gender Information Value Date Recorded Sex Assigned at Not on file 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 Answer Date of Assessment Author No 01/10/2018 9:34 AM Treva Carlson RN * Is person blind or have serious difficulty seeing? Answer Date of Assessment Author No 01/10/2018 9:34 AM Treva Carlson RN * Does person have serious difficulty walking/climbing stairs? Answer Date of Assessment Author No 01/10/2018 9:34 AM Treva Carlson RN * Does person have difficulty dressing/bathing? Answer Date of Assessment Author No 01/10/2018 9:34 AM CDT Treva Poon RN * Does person have difficulty doing errands alone? Answer Date of Assessment Author No 01/10/2018 9:34 AM CDT Treva Poon RN documented as of this encounter Mental Status * Does person have difficulty concentrating/remembering/making decisions? Answer Entry Date Author No 01/10/2018 9:34 AM CDT Treva Poon RN documented in this encounter Miscellaneous Notes * Telephone Encounter - Chelita Hightower - 10/24/2018 3:18 PM CDT rtc to pt. Scheduled for 10/28/18. * Telephone Encounter - Mary Ellen Portillo - 10/24/2018 11:53 AM CDT Pt is returning call about device placement. She would like it in [facility] ( this week ). See note fromTanesha Cherry on 09-22-18. documented in this encounter Plan of Treatment Not on file documented as of this encounter Visit Diagnoses Not on filedocumented in this encounter Care Teams Sort Line Relationship Specialty Start Date End Date Fabrizio Price APRN-GRECIA [address] [place] [phone] PCP - Attributed-[employer] [place] 05/27/23 None, Physician [address] [place] [address] PCP - General 02/23/24 Melissa Anderson, RN [address] [address] Negotiator SalesOil Well Service Operator 03/06/24 03/08/24 documented as of this encounter
--- OUTSIDE RECORDS SUMMARY | 2025-01-09 10:22 | XMS_ITS | Clinical Summary ---
Author Organization [facility] [employer] Address [address] [place] [address] Care Team Providers Care Chair Mender Name Role Phone Fabrizio Price FILM HISTORIAN-ACCOUNT GROUP SUPERVISOR Unavailable [phone] None, Physician Primary Care Provider Unavailabl e Source Comments [facility] [employer],non-owned Affiliates and Associated Physician Practices is amultiple site organization consisting of ambulatory clinics and hospital sitesin [place], [place], [place] and [place]. This disclosure is being madepursuant to the Care Everywhere program and may not contain all information available regarding this patient. Last updated 18.[facility] [employer] Allergies Active Allergy Reactions Criticality Noted Date Comments Adhesive Sensitivity Itching Low 07/13/2018 Latex Skin Reactions Low 11/03/2017 Pain Gloves,condom causes burning Promethazine Other Low 05/13/2016 Skin crawling, IV or PO Metoclopramide Other Low 05/13/2016 Skin crawling, IV or PO Ondansetron Other Low 05/13/2016 Skin crawling, only w/IV form. Can take PO Medications * This document contains information received from the source organization and may not represent a complete record from that organization. * Be aware that medications may not be up to date on this document. Alwaysverify current medications with the patient. levonorgestrel (MIRENA) 20 MCG/24HR IUD 1 (one) device by Intrauterine route as directed Active iron polysaccharides (NIFEREX 150) 150 MG capsule Take 150 mg by mouth once daily Active cetirizine (ZYRTEC) 10 MG tablet Take 1 (one) tablet by mouth as needed Active acetaminophen (TYLENOL) 500 MG tablet Take 1 (one) tablet by mouth every 4 hours as needed for Fever or Pain Maximum allowable Acetaminophen amount = 4 Grams (4000 mg) / 24 hours. Active folic acid (Folvite) 1 MG tablet Take 1 (one) tablet by mouth once daily 30 tablet 12/29/19 Active tolterodine (Detrol) 1 MG tablet Take 1 (one) tablet by mouth 2 times daily 60 tablet 12/28/19 Active Additional Information Patient not taking.Reason: Patient adjusted, Reported on 02/23/2024 Active Problems Problem Noted Date Diagnosed Date Tachycardia 02/23/2024 Flank pain 02/23/2024 Hydronephrosis 12/26/2023 Complicated UTI (urinary tract infection) 2023 Pneumonia of left lower lobe due to infectious o rganism 12/22/2023 Mandible fracture 10/29/2019 Tobacco abuse counseling 12/07/2017 Overview (12/07/2017): Has cut back to 1/2 pkg a day screening for malformation using ultra sonics 08/17/2017 Evaluate anatomy not seen on prior sonogram History of delivery, currently Poor growth affecting management of mother in third trimester Uterine size date discrepancy 35 weeks gestation of Immunizations Immunization Administration Dates Next Due INFLUENZA VACCINE, QUADR. (F LUZONE; FLULAVAL; FLUARIX; AFLURIA QUADRIVALENT; 6MO+), 0.5 ML (IIV4) 01/11/2018 TDAP (7yrs+) 2017 Family History Medical History Relation Name Comments Cancer - Ovarian Maternal Aunt Cancer - Lung Maternal Grandfather Relation Name Status Comments Maternal Aunt Maternal Grandfather Social History Tobacco Use Types Packs/Day Years Used Date Smoking Tobacco: Every Day Cigarettes 0.5 30.7 Started: 1995 Smokeless Tobacco: Never Tobacco Cessation:Ready to Q uit: Not Asked; Counseling Given: Not Answered Comments:Per patient started smoking at age 4 Alcohol Use Standard Drinks/Week Comments Yes 0 (1 standard drink = 0.6 oz pure alcohol) once every 3-4 months, recovering alcoholic AUDIT-C Answer Date Recorded Q1: How often do you have a drink containing alcohol? Never 02/23/2024 Q2: How many drinks containi ng alcohol do you have on a typical day when you are drinking? Patient does not drink Q3: How often do you have si x or more drinks on one occasion? Never 02/23/2024 Overall Financial Resource Strain (CARDIA) Answe r Date Recorded How hard is it for you to pa y for the very basics like food, housing, medical care, and heating? Very hard 02/23/2024 [facility] [place] of Occupat ional Health - Occupational Stress Questionnaire Answer Date Recorded Do you feel stress - tense, restless, nervous, or anxious, or unable to sleep at night because your mind is troubled all the time - these days? Very much 02/23/2024 Hunger Vital Sign Answer Date Recorded Within the past 12 months, y ou worried that your food would run out before you got the money to buy more. Sometimes true Within the past 12 months, t he food you bought just didn't last and you didn't have money to get more. Sometimes true PRAPARE - Transportation Answer Date Re corded In the past 12 months, has l ack of transportation kept you from medical appointments or from getting medications? No 01/26 In the past 12 months, has l ack of transportation kept you from meetings, work, or from getting things needed for daily living? No 02/23/2024 Housing Stability Vital Sign Answer Sha e Recorded In the last 12 months, was t here a time when you were not able to pay the mortgage or rent on time? Yes 12/23/2023 In the last 12 months, how many places have you lived? 1 12/23/2023 In the last 12 months, was t here a time when you did not have a steady place to sleep or slept in a [place] (including now)? No 12/23/2023 Housing Stability Vital Sign Answer Sha e Recorded In the last 12 months, was t here a time when you were not able to pay the mortgage or rent on time? Yes 02/23/2024 In the past 12 months, how m any times have you moved where you were living? 0 02/23/2024 At any time in the past 12 m onths, were you homeless or living in a [place] facility (including now)? No 02/23/2024 Comments No Sex and Gender Information Value Date Recorded Sex Assigned at Not on file Legal Sex Female 2:05 PM OUTCOMES ANALYST Gender Identity Not on file Sexual Orientation Not on file Last Filed Vital Signs Vital Sign Reading Time Taken Comments Blood Pressure 128/84 03/03/2024 4:12 PM OUTCOMES ANALYST Pulse 87 03/03/2024 4:12 PM OUTCOMES ANALYST Temperature 37.1 C (98.7 F) 03/03/2024 4:12 PM OUTCOMES ANALYST Respiratory Rate 18 03/03/2024 4:12 PM OUTCOMES ANALYST Oxygen Saturation 100% 03/03/2024 4:12 PM OUTCOMES ANALYST Inhaled Oxygen Concentration 21% 12/27/2019 1 1:00 AM CDT Weight 43.8 kg (96 lb 8 oz) 03/02/2024 3:[address] Height 154.9 cm (5' 1) 02/23/2024 10:40 AM CDT Body Mass Index 18.23 02/23/2024 10:40 AM CDT Plan of Treatment Health Maintenance Due Date Last Done Comments HEPATITIS B VACCINE (1 of 3 - 19+ 3-dose series) 2008 PNEUMOCOCCAL VACCINE (1 of 2 - PCV) 2008 HPV VACCINE (1 - 3-dose SCDM series) 2016 PAP SMEAR 07/05/2020 07/05/2017 DEPRESSION SCREENING 04/26/2024 COVID-19 VACCINE (1 - 2023-2 5 season) 2024 INFLUENZA VACCINE (#1) 2024 2, 01/11/2018 DTAP/TDAP/TD VACCINES (2 - T d or Tdap) 11/10/2027 2017 ZOSTER VACCINE (1 of 2) 11/10/2039 HEPATITIS C SCREENING Completed 07/13/2018 , 09/14/2017 HIV SCREENING Completed 07/13/2018, 11/03/2017, 07/05/2017 HIB VACCINE Aged Out No longer eligi ble based on patient's age to complete this topic MENINGOCOCCAL (Group B) VACCINE SHARED DECISION-MAKING Aged Out No longer eligible based on patient's age to complete this topic MENINGOCOCCAL GROUPS A/C/Y/W VACCINE Aged Out No longer eligible b ased on patient's age to complete this topic Medical Devices Implanted Type Area Insurance Risk Manager Device Identifier Shelf Expiration Date Model / Serial / Lot Screw 2mm 6mm Slf Margoth Cardona Mxlfcl Implanted:Qty : 5 on 11/08/2019 by Moy Kramer MD at [facility] Maxilla Wall Craniomaxillofacial [id number] / / Plate Mxlmndb Sm Hbrd Mmf Bone Nonster Implanted:Qty : 1 on 11/08/2019 by Moy Kramer MD at [facility] [employer]illa Wall Craniomaxillofacial [id number] / / Screw 2mm 8mm Slf Drl Lck Mxlfcl Implanted:Qty : 5 on 11/08/2019 by Moy Kramer MD at [facility] Mandible Asaf Craniomaxillofacial 50 / / Plate Mxlmndb Sm Hbrd Mmf Bone Nonster Implanted:Qty : 1 on 11/08/2019 by Moy Kramer MD at [facility] Mandible Asaf Craniomaxillofacial [id number] / / Plate Strut Troch Bone Implanted:Qty : 1 on 11/08/2019 by Moy Kramer MD at [facility] Mandible Asaf Craniomaxillofacial [id number] / / Plate 4 Hl Mndb 1mm Mini Str Leibinger Implanted:Qty : 1 on 11/08/2019 by Moy Kramer MD at [facility] Mandible Wall Craniomaxillofacial [id number] / / Plate 4 Hl Bar Crnmxf 1.5mm Mini Ti Bone Implanted:Qty : 1 on 11/08/2019 by Moy Kramer MD at [facility] Mandible Asaf Craniomaxillofacial [id number] / / Screw 2mm 6mm Slf-Tap Xpn Mxlfcl Implanted:Qty : 5 on 11/08/2019 by Moy Kramer MD at [facility] Mandible Wall Craniomaxillofacial [id number] / / Screw 2mm 5mm Slf-Tap Xpn Mxlfcl Implanted:Qty : 6 on 11/08/2019 by Moy Kramer MD at [facility] Mandible Asaf Craniomaxillofacial [id number] / / Stent Uret 6fr 24cm 2 Pgtl Crv 2 Drmtr Implanted:Qty : 1 on 03/01/2024 by Beatriz Dominguez MD at [facility] Right: Ureter [employer]ed 10/13/2026 [id number] / / [id number] Explanted Type Area Insurance Risk Manager Device Identifier Shelf Expiration Date Model / Serial / Lot Ureteral Stenet Explanted:Qty: 1 on 03/01/2024 by Beatriz Dominguez MD at [facility] Right: Ureter UNKNOWN / / Description:EXPLANTED URETER AL STENT INTACT Procedures Procedure Name Priority Date/Time Associated Diagnosis Comments HEPATITIS C ANTIBODY STAT 07/13/2018 10:43 AM CDT STD (female) HIV-1 HIV-2 ANTIBODY + HIV P24 AG PANEL STAT 07/13/2018 10:43 AM CDT STD (female) PAP IG LB CT+NG+TV RFLX HPV ASCU Routine 07/05/2017 1:39 PM CDT 11 weeks gestation of from Last 3 Months or Most Recently Relevant to Health Maintenance Results * HIV-1 HIV-2 ANTIBODY + HIV P24 AG PANEL (07/13/2018 10:43 AM CDT) HIV1/2 Ab + P24 Ag Non Reactive Non Reactive 07/13/2018 5:04 PM CDT [facility] Blood BLOOD SPECIMEN / Unknown Venipuncture / Unknown 07/13/2018 10:43 AM CDT 07/13/2018 11:25 AM CDT Narrative [facility] - 07/13/2018 5:04 PM CDT No Laboratory evidence of HIV infection. us Vee Wright MD LAB - CHEMISTRY ORDERABLES Fi nal Result [facility] [place] [address] * HEPATITIS C ANTIBODY (07/13/2018 10:43 AM CDT) HCV Antibody Screen Non Reactive Non Reactive 07/13/2018 12:57 PM CDT [facility] HCV S/C Ratio 0.12 0.00 - 0.79 07/13/2018 12:57 PM CDT [facility] Comment: Mylhvq-mw-lyhhjo ratio (S/CO) <0.80: Non Reactive Blood BLOOD SPECIMEN / Unknown Venipuncture / Unknown 07/13/2018 10:43 AM CDT 07/13/2018 11:27 AM CDT Narrative [facility] - 07/13/2018 12:57 PM CDT Non Reactive - Antibodies to Hepatitis C virus (HCV) were not detected, result does not exclude early acute HCV infection. us Vee Wright MD LAB - CHEMISTRY ORDERABLES Fi nal Result [facility] [address] [place] [address] * PAP IG LB CT+NG+TV RFLX HPV ASCU (07/05/2017 1:39 PM CDT) Diagnosis [facility] ACCOUNT BILL Comment:NEGATIVE FOR INTRAEP ITHELIAL LESION AND MALIGNANCY. Specimen Adequacy [facility] ACCOUNT BILL Comment: Satisfactory for evaluation. Endocervical and/or squamous metaplastic cells (endocervical component) are present. Clinician Provided ICD10 [facility] ACCOUNT BILL Comment: N92.6 Z34.90 Performed by [facility] ACCOUNT BILL Comment:Lizzeth chávez, Residential Insurance Inspector (ASCP) Comment . [facility] ACCOUNT BILL Note [facility] ACCOUNT BILL Comment: The Pap smear is a screening test designed to aid in the detection of premalignant and malignant conditions of the uterine cervix. It is not a diagnostic procedure and should not be used as the sole means of detecting cervical cancer. Both false-positive and false-negative reports do occur. . IGLBP CPT Code Automation [facility] ACCOUNT BILL Comment: This liquid based ThinPrep(R) pap test was screened with the use of an image guided system. Note [facility] ACCOUNT BILL Comment: The HPV DNA reflex criteria were not met with this specimen result therefore, no HPV testing was performed. . Chlamydia trachomatis OC Negative Negative [facility] ACCOUNT BILL GC OC Negative Negative [facility] ACCOUNT BILL Trichomonas vaginalis by OC Negative Negative [facility] ACCOUNT BILL PART OF UTERINE CERVIX / Unknown 07/05/2017 1:39 PM CDT 07/06/2017 Narrative [facility] ACCOUNT BILL - 07/07/2017 3:18 PM CDT Source.............Cervix LMP / Prev Treat...None Other.............. No. of containers..01 ThinPrep Vial Resulting Agency Comment [facility] [address] KRAMER [id number] Maureen Calvert MD LAB - PATHOLOGY/CYTOLOGY JUAN FLANAGAN Final Result [facility] ACCOUNT BILL [address] [place] [address] from Last 3 Months or Most Recently Relevant to Health Maintenance Insurance [employer] [place] MEDICAID MEDICAID - OUT OF STATE Advance Directives * Full Code (Latest Code Status on File) Date Activated Date Inactivated Comments 02/23/2024 7:16 PM 03/03/2024 6:24 PM * Full Code Date Activated Date Inactivated Comments 02/23/2024 2:45 PM 02/23/2024 7:16 PM * Full Code Date Activated Date Inactivated Comments 12/23/2023 4:53 PM 12/28/2023 3:47 PM * Full Code Date Activated Date Inactivated Comments 01/10/2018 10:24 AM 01/12/2018 2:36 PM Care Teams Chair Mender Relationship Specialty Start Date End Date Fabrizio Price APRN-ACCOUNT GROUP SUPERVISOR [address] [place] [phone] PCP - Attributed-[employer] [place] 05/27/23 None, Physician [address] [place] [address] PCP - General 02/23/24
[2025-01-09] MEDS: KETOROLAC (*BKC) 60 MG/2 ML VIAL IM (10:34)
[2025-01-09 11:41] VITALS: BP 142/76; PULSE 96; RESP 16; O2SAT 97
== END 2025-01-09 11:42 | disposition home or self-care (01) ==
PROVIDERS: Emergency Provider Physician Assistant
DX: S02.5XXA Fracture of tooth (traumatic), initial encounter for closed fracture (principal); S02.2XXA Fracture of nasal bones, initial encounter for closed fracture; J45.909 Unspecified asthma, uncomplicated; K21.9 Gastro-esophageal reflux disease without esophagitis; K58.9 Irritable bowel syndrome, unspecified; F17.210 Nicotine dependence, cigarettes, uncomplicated; Z87.442 Personal history of urinary calculi; Y04.2XXA Assault by strike against or bumped into by another person, initial encounter
CPT/HCPCS: 70450; 70486; 71046; 71100; 72125; 96372; 99284; A9270; J1885